=== PATIENT | male | born 1945 | race Caucasian/White ===

== ENCOUNTER 2017-09-30 05:47 | Inpatient (IN) | payer MEDICARE ==
[2017-09-30] VITALS (8 sets, daily range): BP systolic 110–138; BP diastolic 56–79; PULSE 73–95; RESP 14–18; TEMP 98.1–99.1; O2SAT 95–97
[~2017-09-30] VITALS: Ht 172.7 cm; Wt 108.0 kg
[~2017-09-30 05:47] MED LIST: ATOR10 PO; PRED10PA PO; PREG75 PO; RANI150C PO; TAB-TAB PO
[2017-09-30] MEDS ORDERED: TRAM50TA PO (06:11)
[2017-09-30] MEDS ORDERED: ATOR20TA15 PO (06:11)
--- NOTE | 2017-09-30 06:17 | PD ---
HPI Chief Complaint: Fall Time Seen by Provider: 05:54 Travel History International Travel<30 days: Yes Contact w/Intl Traveler<30days: Yes Name of Country Traveled to: [facility] Traveled to known affect area: No History of Present Illness HPI This 72-year-old man who presents to the emergency department complaining of worsening lower extremity weakness. He is a history of neurofibroma that was removed from the L4-5 level in 2007, as well as transverse myelitis in 2013. He is well for bilateral lower extremity weakness, left greater than right. He typically walks with a walker, needs help getting into his bathtub, cannot not stand for extended periods. He states over the past 2-3 weeks this has gotten significantly worse. He fell while he was in [place], and then tonight he was trying to get out of bed and he states his legs will not hold him and he slid down to the ground. He was unable to get up on his own. He has had some URI symptoms recently with cough and congestion. Denies any fevers or chills. No urinary symptoms. No other complaints. He struggles with lower extremity edema, which is been significant recently, but consistent with the previous problems he has had. History Past Medical History Narrative Medical History of neurofibroma at the L4-L5 level, status post resection in 2007 History of transverse myelitis in 2012 with resultant lower extremity weakness, left greater than right Arthritis Hyperlipidemia Tetanus Vaccination: Unknown Influenza Vaccination: No Social History Alcohol Use: No Tobacco Use: No Allergies-Medications (Allergen,Severity, Reaction): Coded Allergies: No Known Allergies (Verified Adverse Reaction, Unknown, 09/30/17) Reported Meds & Prescriptions Reported Meds & Active Scripts Active Reported Zantac (Ranitidine HCl) 150 Mg Cap 150 Mg PO BID while taking prednisone Prednisone 10 Mg Miki 10 Mg PO DIRECTED 6 tabs every am x 2days then 5 tabs po daily then 4 tabs daily x 2 days then 3 tabs daily times 2 days then 2 tabs daily times 2 days then 1 tab daily times 2 days Lyrica (Pregabalin) 75 Mg Cap 75 Mg PO BID Multivitamin (Multivitamins) 1 Tab Tab 1 Tab PO DAILY Lipitor (Atorvastatin Calcium) 10 Mg Tab 20 Mg PO DAILY Review of Systems Except as stated in HPI: all other systems reviewed are Neg Physical Exam Narrative GENERAL: Well-appearing 72-year-old man, no acute distress. SKIN: Focused skin assessment warm/dry. HEAD: Atraumatic. Normocephalic. EYES: Pupils equal and round. No scleral icterus. No injection or drainage. ENT: No nasal bleeding or discharge. Mucous membranes pink and moist. NECK: Trachea midline. No JVD. CARDIOVASCULAR: Regular rate and rhythm. No murmur appreciated. RESPIRATORY: No accessory muscle use. Clear to auscultation. Breath sounds equal bilaterally. GASTROINTESTINAL: Abdomen soft, non-tender, nondistended. Hepatic and splenic margins not palpable. MUSCULOSKELETAL: No obvious deformities. Significant lower extremity edema, equal bilaterally. NEUROLOGICAL: Awake and alert. No obvious cranial nerve deficits. Strength is weak in the lower extremities. Upper extremity strength is grossly unremarkable. In the lower extremities he is weak in right lower extremity flexion at the hips, barely able to lift legs up off the bed. Strength and the knees is a little bit stronger in extension as well as strong and plantar flexion and dorsiflexion of the foot and toes. On the left he is unable to lift the leg up against gravity, 2+ in the knees for extension and flexion, nearly absent and great toe plantarflexion and foot plantarflexion, and completely absent in foot and great toe dorsiflexion on the left. Sensation appears grossly intact throughout to light touch. Reflexes are absent in the lower extremities. PSYCHIATRIC: Appropriate mood and affect; insight and judgment normal. Data Data Last Documented VS Vital Signs Date Time Temp Pulse Resp B/P (MAP) Pulse Ox O2 Delivery O2 Flow Rate FiO2 09/30/17 05:57 89 17 98 Room Air 09/30/17 05:53 98.1 122/64 (83) Orders Orders Complete Blood Count With Diff (09/30/17 06:08) Comprehensive Metabolic Panel (09/30/17 06:08) Iv Access Insert/Monitor (09/30/17 06:08) Urinalysis - C+S If Indicated (09/30/17 06:08) MDM Medical Decision Making Medical Screen Exam Complete: Yes Emergency Medical Condition: Yes Differential Diagnosis Weakness, lower extremity edema, worsening transverse myelitis, infection, electrolyte abnormality, other Narrative Course Medical decision making INITIAL: 72-year-old male presents to the emergency department complaining of weakness and fall. No evidence of trauma. Marked weakness in the lower extremities, especially in the left. Some of this is baseline but appears acutely worsened. Could represent exacerbation of previous symptoms from infection, electrolyte abnormality, worsening debility, or less likely recurrence of new neurologic disease. Will check labs, urine, gait tests, likely need admission for physical therapy evaluation and possibly further workup. Chandrakant Ledbetter MD Sep 30, 2017 06:17
[2017-09-30 06:26] LABS: AUTOMATED NEUTROPHIL # 17.3 TH/MM3 (1.8-7.7); BASOPHIL # 0.1 TH/MM3 (0-0.2); BASOPHIL % 0.4 % (0.0-2.0); EOSINOPHIL % 0.2 % (0.0-4.0); HEMATOCRIT 37.7 % (39.0-51.0); HEMOGLOBIN 13.3 GM/DL (13.0-17.0); LYMPH % 4.6 % (9.0-44.0); LYMPHOCYTE # 0.9 TH/MM3 (1.0-4.8); MEAN CELL VOLUME 83.7 FL (80.0-100.0); MEAN CORPUSCULAR HEMOGLOBIN 29.6 PG (27.0-34.0); MEAN CORPUSCULAR HGB CONC 35.3 % (32.0-36.0); MEAN PLATELET VOLUME 7.8 FL (7.0-11.0); MONO % 7.1 % (0.0-8.0); MONOCYTE # 1.4 TH/MM3 (0-0.9); NEUT % 87.7 % (16.0-70.0); PLATELET COUNT 204 TH/MM3 (150-450); RED BLOOD COUNT 4.51 MIL/MM3 (4.50-5.90); RED CELL DISTRIBUTION WIDTH 14.8 % (11.6-17.2); WHITE BLOOD COUNT 19.8 TH/MM3 (4.0-11.0)
[2017-09-30 06:48] LABS: ALT (GPT) 32 U/L (12-78); AST (GOT) 18 U/L (15-37); BICARBONATE 27.8 MEQ/L (21.0-32.0); BLOOD UREA NITROGEN 17 MG/DL (7-18); CALCIUM 8.3 MG/DL (8.5-10.1); CHLORIDE 104 MEQ/L (98-107); CREATININE 0.89 MG/DL (0.60-1.30); GLOMERULAR FILTRATION RATE 85 ML/MIN (>89); GLUCOSE,RANDOM 97 MG/DL (74-106); SODIUM (NA) 137 MEQ/L (136-145)
[2017-09-30 06:51] LABS: ALKALINE PHOSPHATASE 98 U/L (45-117); TOTAL BILIRUBIN ADULT 1.8 MG/DL (0.2-1.0); TOTAL PROTEIN 6.4 GM/DL (6.4-8.2)
--- NOTE | 2017-09-30 07:35 | RADRPT ---
EXAM DATE/TIME: 09/30/2017 07:05 [place] COMPARISON: No previous studies available for comparison. INDICATIONS : Short of breath MEDICAL HISTORY : None. SURGICAL HISTORY : None. ENCOUNTER: Initial ACUITY: 1 day PAIN SCORE: 0/10 LOCATION: Bilateral chest FINDINGS: Left basilar patchiness is noted consistent with probable pneumonia. Clinical correlation is recommen ded. The heart is enlarged. Right lung is clear. CONCLUSION: 1. Left basilar patchiness consistent with probable pneumonia. Clinical correlation is recommended. 2. Cardiomegaly. Gatito Quiñonez MD on September 30, 2017 at 7:33 Board Certified Radiologist. This report was verified electronically.
[2017-09-30 07:36] LABS: BACTERIA, URINE MOD /hpf; BILIRUBIN, URINE NEG (NEG); BLOOD, URINE MOD (NEG); GLUCOSE,URINE NEG (NEG); KETONE, URINE NEG (NEG); MUCUS URINE MOD /lpf (OCC); NITRITE,URINE NEG (NEG); PH, URINE 7.5 (5.0-8.5); SQUAMOUS EPITHELIAL CELL URINE <1 /hpf (0-5); URINE COLOR YELLOW (YELLW/STRAW); URINE LEUKOCYTE ESTERASE LARGE (NEG)
[2017-09-30] MEDS ORDERED: AZITHROMYCIN INJ 500 MG in SODIUM CHLOR 0.9% 250 ML INJ 250 ML IV ONE (07:45)
[2017-09-30] MEDS ORDERED: cefTRIAXone INJ 1,000 MG in SODIUM CHLORIDE 0.9% INJ 100 ML IV ONE (07:45)
--- NOTE | 2017-09-30 07:49 | PD ---
Physical Exam Date Seen by Provider: Sep 30, 2017 Time Seen by Provider: 07:00 Narrative The patient was signed out to me by Dr. Ledbetter at change of shift. We were awaiting chest x-ray and urine results. Patient presents with complaints of worsening weakness over the last several days. There is no reported fever. The patient has had a dry cough. Please see Dr. Ledbetter's H&P for further details. Data Data Last Documented VS Vital Signs Date Time Temp Pulse Resp B/P (MAP) Pulse Ox O2 Delivery O2 Flow Rate FiO2 09/30/17 07:09 86 14 119/56 (77) 97 Room Air 09/30/17 05:53 98.1 Orders Orders Complete Blood Count With Diff (09/30/17 06:08) Comprehensive Metabolic Panel (09/30/17 06:08) Iv Access Insert/Monitor (09/30/17 06:08) Urinalysis - C+S If Indicated (09/30/17 06:08) Chest, Single Ap (09/30/17 ) Urine Culture (09/30/17 07:10) Ceftriaxone Inj (Rocephin Inj) (09/30/17 07:45) Azithromycin Inj (Zithromax Inj) (09/30/17 07:45) Atorvastatin (Lipitor) (09/30/17 21:00) Tramadol (Ultram) (09/30/17 08:30) Admit Order (Ed Use Only) (09/30/17 08:23) Labs Laboratory Tests Test 09/30/17 06:15 09/30/17 07:10 White Blood Count 19.8 TH/MM3 Red Blood Count 4.51 MIL/MM3 Hemoglobin 13.3 GM/DL Hematocrit 37.7 % Mean Corpuscular Volume 83.7 FL Mean Corpuscular Hemoglobin 29.6 PG Mean Corpuscular Hemoglobin Concent 35.3 % Red Cell Distribution Width 14.8 % Platelet Count 204 TH/MM3 Mean Platelet Volume 7.8 FL Neutrophils (%) (Auto) 87.7 % Lymphocytes (%) (Auto) 4.6 % Monocytes (%) (Auto) 7.1 % Eosinophils (%) (Auto) 0.2 % Basophils (%) (Auto) 0.4 % Neutrophils # (Auto) 17.3 TH/MM3 Lymphocytes # (Auto) 0.9 TH/MM3 Monocytes # (Auto) 1.4 TH/MM3 Eosinophils # (Auto) 0.0 TH/MM3 Basophils # (Auto) 0.1 TH/MM3 CBC Comment DIFF FINAL Differential Comment Blood Urea Nitrogen 17 MG/DL Creatinine 0.89 MG/DL Random Glucose 97 MG/DL Total Protein 6.4 GM/DL Albumin 3.0 GM/DL Calcium Level 8.3 MG/DL Alkaline Phosphatase 98 U/L Aspartate Amino Transf (AST/SGOT) 18 U/L Alanine Aminotransferase (ALT/SGPT) 32 U/L Total Bilirubin 1.8 MG/DL Sodium Level 137 MEQ/L Potassium Level 3.7 MEQ/L Chloride Level 104 MEQ/L Carbon Dioxide Level 27.8 MEQ/L Anion Gap 5 MEQ/L Estimat Glomerular Filtration Rate 85 ML/MIN Urine Color YELLOW Urine Turbidity HAZY Urine pH 7.5 Urine Specific [place] 1.019 Urine Protein 30 mg/dL Urine Glucose (UA) NEG mg/dL Urine Ketones NEG mg/dL Urine Occult Blood MOD Urine Nitrite NEG Urine Bilirubin NEG Urine Urobilinogen 2.0 MG/DL Urine Leukocyte Esterase LARGE Urine RBC 62 /hpf Urine WBC /hpf Urine Squamous Epithelial Cells <1 /hpf Urine Bacteria MOD /hpf Urine Mucus MOD /lpf Microscopic Urinalysis Comment CULTURE INDICATED MDM Medical Record Reviewed: Yes Supervised Visit with CT: No Differential Diagnosis UTI versus pneumonia versus metabolic derangement versus worsening lower extremity edema. Narrative Course 72-year-old male history of transverse myelitis, presents with progressive weakness of his extremities over the last several days. Patient is noted to have a left lower lobe pneumonia. Patient also has a UTI. White count was 19, 000. He has been started on Rocephin, Zithromax. He will be admitted to the hospital. There is a call out to the admitting team. Sepsis Criteria SIRS Criteria (2 or more): Heart rate over 90, WBC > 02729, < 4000 or > 10% bands Sepsis Criteria (SIRS+source): Infect source susp/known Diagnosis Primary Impression: Sepsis Additional Impressions: Left lower lobe pneumonia Cystitis Leukocytosis History of transverse myelitis Worsening weakness Admitting Information Admitting Physician Requests: Admit Angus Escobar MD Sep 30, 2017 07:49
[2017-09-30] MEDS ORDERED: LACTULOSE SYRUP 20 GM/30 ML CUP PO PRN (08:30)
[2017-09-30] MEDS ORDERED: NALOXONE HCL 0.4 MG/ML AMP IV PUSH PRN (08:30)
[2017-09-30] MEDS ORDERED: BISACODYL 10 MG SUPP RECTAL PRN (08:30)
[2017-09-30] MEDS ORDERED: SENNOSIDES 8.6 MG TAB PO PRN (08:30)
[2017-09-30] MEDS ORDERED: SODIUM CHLORIDE 0.9% FLUSH 10 ML FLUSH IV FLUSH PRN (08:30)
[2017-09-30] MEDS ORDERED: ONDANSETRON HCL 4 MG/2 ML VIAL IVP PRN (08:30)
[2017-09-30] MEDS ORDERED: ACETAMINOPHEN 325 MG TAB PO PRN (08:30)
[2017-09-30] MEDS: traMADol HCL 50 MG TAB PO PRN ×2 (08:49→21:37)
--- NOTE | 2017-09-30 08:52 | PD.PN.STU ---
Subjective Remarks H&P: HPI: The patient is a 72 year old man with a history of transverse myelitis who presented to the ER on 09/30/17 due to worsening LE weakness. He has bilateral lower extremity weakness at baseline, left greater than right. He uses a walker at home usually. Over the last 2-3 days, he has had an increase of weakness in his lower extremities, which culminated into a fall in which the patient could not get himself up. He admits to having some subjective fevers, chills and non-productive cough, but denies nausea, vomiting and diarrhea. He denies changes in urinary frequency and dysuria. 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 SOCIAL HX: Cigar smoking, quit 25 years ago Rare alcohol FAMILY HX Father of COPD, HTN, [place] Mother of ovarian cancer, had history of valvular disease, had valve replacement surgery Two sisters with breast cancer Brother with thyroidectomy for Graves Objective Vitals Vital Signs Date Time Temp Pulse Resp B/P (MAP) Pulse Ox O2 Delivery O2 Flow Rate FiO2 09/30/17 07:09 86 14 119/56 (77) 97 Room Air 09/30/17 05:57 89 17 98 Room Air 09/30/17 05:53 98.1 95 17 122/64 (83) 97 I/O 09/29/17 09/29/17 09/29/17 09/30/17 09/30/17 09/30/17 07:00 15:00 23:00 07:00 15:00 23:00 Intake Total 100 ml Balance 100 ml Intake IV Total 100 ml Result Diagram: 09/30/17 0615 09/30/17 0615 Imaging Last Impressions Chest X-Ray 09/30/17 0000 Signed Impressions: Service Date/Time: Saturday, September 30, 2017 07:05 - CONCLUSION: 1. Left basilar patchiness consistent with probable pneumonia. Clinical correlation is recommended. 2. Cardiomegaly. Gatito Quiñonez MD Objective Remarks GENERAL: Alert, oriented x 3, NAD. Appears his stated age. SKIN: Warm and dry. HEAD: Atraumatic. Normocephalic. EYES: Lid lag and slight exophthalmos. Pupils equal and round. No scleral icterus. No injection or drainage. ENT: No nasal bleeding or discharge. Mucous membranes pink and moist. NECK: Trachea midline. No JVD. CARDIOVASCULAR: Regular rate and rhythm. RESPIRATORY: No accessory muscle use. Clear to auscultation. Breath sounds equal bilaterally. GASTROINTESTINAL: Abdomen soft, non-tender, nondistended. Hepatic and splenic margins not palpable. MUSCULOSKELETAL: Extremities without clubbing, cyanosis. Edema in bilateral lower extremities. NEUROLOGICAL: Awake and alert. No obvious cranial nerve deficits. Motor grossly within normal limits. Five out of 5 muscle strength in the arms. 4/5 muscle strength in the RLE. 3/5 muscle strength in the distal LLE. 2/5 muscle strength in the proximal LLE. DTR's 2+. Normal speech. A/P Assessment and Plan The patient is a pleasant 72 year old male with a history of tranverse myeltiis who presents to the ED for worsening lower extremity weakness over the last few days. He admitted to having subjective fevers and cough in the last few days, and initial workup revealed elevated WBC at 19.8, left basilar patchiness suspicious for pneumonia on CXR, and a positive UA. Patient meets sepsis criteria due to tachycardia, WBC >12,000 and suspected infection. He was given ceftriaxone 1000mg once and azithromycin 500 mg once in the ER. Sepsis (leucocytosis, tachycardia source of ifx PNA and UTI) Pneumonia UTI Continue IV fluids Continue ceftriaxone 1000mg q24hr Continue azithromycin 500 mg q24hr Awaiting sputum sample gram stain and culture if possible Urine culture pending Transverse myelitis Suspect worsening of lower extremity weakness is due to underlying infection , will consider other possibilities if patient fails to improve. Consult Dr. Velasquez/Neuro Hypertension Normotensive today, will monitor Hyperlipidemia Continue home med, Lipitor 20mg PO daily DVT prophylaxis: Lovenox. Seen and examined, case discussed at length with Benja Cazares MS III. Note reviewed and agree with above. Benja Cazares M3 Sep 30, 2017 08:52 Kori Patel MD Sep 30, 2017 11:49
[2017-09-30] MEDS: ENOXAPARIN SODIUM 40 MG/0.4 ML SYRINGE SQ SCH (09:03)
[2017-09-30] MEDS: SODIUM CHLORIDE 0.9% FLUSH 10 ML FLUSH IV FLUSH SCH ×2 (09:03→21:00)
[2017-09-30] MEDS: DOCUSATE SODIUM 50 MG/SENNA 8.6 MG TAB PO SCH ×2 (09:03→21:38)
[2017-09-30] MEDS: SODIUM CHLOR 0.9% 1000 ML INJ 1,000 ML IV SCH ×2 (09:03→19:00)
--- NOTE | 2017-09-30 11:07 | HHI.HP ---
HPI Service [facility] Primary Care Physician Emma Wasserman MD Admission Diagnosis Sepsis, pneumonia, cystitis, leukocytosis, hx of Tranverse myelitis Diagnoses: Chief Complaint: weakness Travel History International Travel<30 Days: Yes Contact w/Intl Traveler <30 Da: Yes Name of Country Traveled to: [facility] Traveled to Known Affected Are: No History of Present Illness The patient is a pleasant 72 year old man with a history of transverse myelitis who presented to the ER on 09/30/17 due to worsening LE weakness. He has bilateral lower extremity weakness at baseline, left greater than right. He uses a walker at home usually. Over the last 2-3 days, he has had an increase of weakness in his lower extremities, which culminated into a fall in which the patient could not get himself up. He admits to having some subjective fevers, chills and non-productive cough, but denies nausea, vomiting and diarrhea. He denies changes in urinary frequency and dysuria. 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 Reported Medications Last Impressions Chest X-Ray 09/30/17 0000 Signed Impressions: Service Date/Time: Saturday, September 30, 2017 07:05 - CONCLUSION: 1. Left basilar patchiness consistent with probable pneumonia. Clinical correlation is recommended. 2. Cardiomegaly. Gatito Quiñonez MD Allergies: Coded Allergies: No Known Allergies (Verified Allergy, Unknown, 09/30/17) Family History Father of COPD, HTN, [place] Mother of ovarian cancer, had history of valvular disease, had valve replacement surgery Two sisters with breast cancer Brother with thyroidectomy for Graves Social History Cigar smoking, quit 25 years ago Rare alcohol Physical Exam Vital Signs Vital Signs Date Time Temp Pulse Resp B/P (MAP) Pulse Ox O2 Delivery O2 Flow Rate FiO2 09/30/17 07:09 86 14 119/56 (77) 97 Room Air 09/30/17 05:57 89 17 98 Room Air 09/30/17 05:53 98.1 95 17 122/64 (83) 97 Physical Exam GENERAL: This is a well-nourished, well-developed patient, in no apparent distress. SKIN: No rashes, ecchymoses or lesions. Cool and dry. HEAD: Atraumatic. Normocephalic. No temporal or scalp tenderness. EYES: Pupils equal round and reactive. Extraocular motions intact. No scleral icterus. No injection or drainage. ENT: Nose without bleeding, purulent drainage or septal hematoma. Throat without erythema, tonsillar hypertrophy or exudate. Uvula midline. Airway patent. NECK: Trachea midline. No JVD or lymphadenopathy. Supple, nontender, no meningeal signs. CARDIOVASCULAR: Regular rate and rhythm without murmurs, gallops, or rubs. RESPIRATORY: Clear to auscultation. Breath sounds equal bilaterally. No wheezes , rales, or rhonchi. GASTROINTESTINAL: Abdomen soft, non-tender, nondistended. No hepato-splenomegaly , or palpable masses. No guarding. MUSCULOSKELETAL: Extremities without clubbing, cyanosis, or edema. No joint tenderness, effusion, or edema noted. No calf tenderness. Negative Homans sign bilaterally. NEUROLOGICAL: Awake and alert. Normal speech. Five out of 5 muscle strength in arms. 4/5 muscle strength in the RLE. 3/5 muscle strength in the distal LLE. 2 /5 muscle strength in the proximal LLE. Laboratory Laboratory Tests Test 09/30/17 06:15 09/30/17 07:10 White Blood Count 19.8 Red Blood Count 4.51 Hemoglobin 13.3 Hematocrit 37.7 Mean Corpuscular Volume 83.7 Mean Corpuscular Hemoglobin 29.6 Mean Corpuscular Hemoglobin Concent 35.3 Red Cell Distribution Width 14.8 Platelet Count 204 Mean Platelet Volume 7.8 Neutrophils (%) (Auto) 87.7 Lymphocytes (%) (Auto) 4.6 Monocytes (%) (Auto) 7.1 Eosinophils (%) (Auto) 0.2 Basophils (%) (Auto) 0.4 Neutrophils # (Auto) 17.3 Lymphocytes # (Auto) 0.9 Monocytes # (Auto) 1.4 Eosinophils # (Auto) 0.0 Basophils # (Auto) 0.1 CBC Comment DIFF FINAL Differential Comment Blood Urea Nitrogen 17 Creatinine 0.89 Random Glucose 97 Total Protein 6.4 Albumin 3.0 Calcium Level 8.3 Alkaline Phosphatase 98 Aspartate Amino Transf (AST/SGOT) 18 Alanine Aminotransferase (ALT/SGPT) 32 Total Bilirubin 1.8 Sodium Level 137 Potassium Level 3.7 Chloride Level 104 Carbon Dioxide Level 27.8 Anion Gap 5 Estimat Glomerular Filtration Rate 85 Urine Color YELLOW Urine Turbidity HAZY Urine pH 7.5 Urine Specific [place] 1.019 Urine Protein 30 Urine Glucose (UA) NEG Urine Ketones NEG Urine Occult Blood MOD Urine Nitrite NEG Urine Bilirubin NEG Urine Urobilinogen 2.0 Urine Leukocyte Esterase LARGE Urine RBC 62 Urine WBC Urine Squamous Epithelial Cells <1 Urine Bacteria MOD Urine Mucus MOD Microscopic Urinalysis Comment CULTURE INDICATED Date/Time Source Procedure Growth Status 09/30/17 07:10 Urine Clean Catch Urine Culture Pending Received Result Diagram: 09/30/17 0615 09/30/17 0615 Imaging Last Impressions Chest X-Ray 09/30/17 0000 Signed Impressions: Service Date/Time: Saturday, September 30, 2017 07:05 - CONCLUSION: 1. Left basilar patchiness consistent with probable pneumonia. Clinical correlation is recommended. 2. Cardiomegaly. Gatito Quiñonez MD Caprini VTE Risk Assessment Caprini VTE Risk Assessment: Mod/High Risk (score >= 2) Caprini Risk Assessment Model Point Value = 1 Point Value = 2 Point Value = 3 Point Value = 5 Age 41-60 Minor surgery BMI > 25 kg/m2 Swollen legs Varicose veins or History of unexplained or recurrent spontaneous Oral contraceptives or hormone replacement Sepsis (< 1 month) Serious lung disease, including pneumonia (< 1 month) Abnormal pulmonary function Acute myocardial infarction Congestive heart failure (< 1 month) History of inflammatory bowel disease Medical patient at bed rest Age 61-74 Arthroscopic surgery Major open surgery (> 45 min) Laparoscopic surgery (> 45 min) Malignancy Confined to bed (> 72 hours) Immobilizing plaster cast Central venous access Age >= 75 History of VTE Family history of VTE Factor V Leiden Prothrombin [id number] Lupus anticoagulant Anticardiolipin antibodies Elevated serum homocysteine Heparin-induced thrombocytopenia Other congenital or acquired thrombophilia Stroke (< 1 month) Elective arthroplasty Hip, pelvis, or leg fracture Acute spinal cord injury (< 1 month) Prophylaxis Regimen Total Risk Factor Score Risk Level Prophylaxis Regimen 0-1 Low Early ambulation 2 Moderate Order ONE of the following: *Sequential Compression Device (SCD) *Heparin 5000 units SQ BID 3-4 Higher Order ONE of the following medications: *Heparin 5000 units SQ TID *Enoxaparin/Lovenox 40 mg SQ daily (WT < 150 kg, CrCl > 30 mL/min) *Enoxaparin/Lovenox 30 mg SQ daily (WT < 150 kg, CrCl > 10-29 mL/min) *Enoxaparin/Lovenox 30 mg SQ BID (WT < 150 kg, CrCl > 30 mL/min) AND/OR *Sequential Compression Device (SCD) 5 or more Highest Order ONE of the following medications: *Heparin 5000 units SQ TID (Preferred with Epidurals) *Enoxaparin/Lovenox 40 mg SQ daily (WT < 150 kg, CrCl > 30 mL/min) *Enoxaparin/Lovenox 30 mg SQ daily (WT < 150 kg, CrCl > 10-29 mL/min) *Enoxaparin/Lovenox 30 mg SQ BID (WT < 150 kg, CrCl > 30 mL/min) AND *Sequential Compression Device (SCD) Assessment and Plan Assessment and Plan The patient is a pleasant 72 year old male with a history of tranverse myeltiis who presents to the ED for worsening lower extremity weakness over the last few days. He admitted to having subjective fevers and cough in the last few days, and initial workup revealed elevated WBC at 19.8, left basilar patchiness suspicious for pneumonia on CXR, and a positive UA. Patient meets sepsis criteria due to tachycardia, WBC >12,000 and suspected infection. He was given ceftriaxone 1000mg once and azithromycin 500 mg once in the ER. Sepsis (leucocytosis, tachycardia source of ifx PNA and UTI) on admission Pneumonia UTI Continue IV fluids Continue ceftriaxone 1000mg q24hr Continue azithromycin 500 mg q24hr Awaiting sputum sample gram stain and culture if possible Urine culture pending Transverse myelitis Suspect worsening of lower extremity weakness is due to underlying infection, will consider other possibilities if patient fails to improve. Consult Dr. Velasquez/Neuro Hypertension Normotensive today, will monitor Hyperlipidemia Continue home med, Lipitor 20mg PO daily DVT prophylaxis: SCD/TEDs/Lovenox. Discussed Condition With pt, nurse, ED physician Dr Escobar Physician Certification 2 Midnight Certification Type: Admission for Inpatient Services Order for Inpatient Services The services are ordered in accordance with Medicare regulations or non- Medicare payer requirements, as applicable. In the case of services not specified as inpatient-only, they are appropriately provided as inpatient services in accordance with the 2-midnight benchmark. Estimated LOS (days): 3 days is the estimated time the patient will need to remain in the hospital, assuming treatment plan goals are met and no additional complications. Post-Hospital Plan: Not yet determined Kori Patel MD Sep 30, 2017 11:07
--- NOTE | 2017-09-30 20:11 | MB ---
cc: Robert Velasquez MD, PhD DATE: 09/30/2017 REASON FOR CONSULTATION: Transverse myelitis. HISTORY OF PRESENT ILLNESS: Mr. Pritchett is a 72-year-old man well known to me who has a documented history of transverse myelitis, which has been stable. He has had residual weakness in his legs, but he reports increasing weakness. He has been diagnosed also as having pneumonia with possible sepsis. CURRENT MEDICATIONS: Ceftriaxone, azithromycin, Lipitor, Lovenox 40 mg subQ daily, Ultram, Tylenol, Narcan, Zofran. NEUROLOGIC EXAMINATION: His blood pressure is 138/79, pulse is 74, respirations 18, temperature 98 degrees. Higher cortical functions are normal. Cranial nerves 2-12 are normal. Motor exam: 5/5 strength of all groups in both upper extremities. Lower extremity strength is weak in both lower extremities. He is approximately 3/5 in the right leg, 4-/5 left leg proximally and distally. Reflexes 2+, symmetric. LABORATORY DATA: The white count is 19,800, hemoglobin 13.3, hematocrit 37%, platelets 204,000. Sodium is 137, potassium 3.7, chloride 104, CO2 of 27.8, BUN is 17, creatinine 0.89. IMPRESSION: Transverse myelitis, now with increasing symptoms, possibly related to the pneumonia and sepsis. RECOMMENDATION: I would like to proceed with an MRI of the cervical and thoracic spine for further evaluation. Robert Velasquez MD, PhD QUINN/YESY , 07:51 PM , 08:10 PM
[2017-09-30] MEDS: ATORVASTATIN 20 MG TAB PO SCH (21:38)
[2017-10-01] VITALS (7 sets, daily range): BP systolic 112–143; BP diastolic 56–83; PULSE 59–79; RESP 18–20; TEMP 97.5–99.2; O2SAT 95–97
[2017-10-01] MEDS: SODIUM CHLOR 0.9% 1000 ML INJ 1,000 ML IV SCH ×3 (05:19→23:54)
[2017-10-01 06:37] LABS: AUTOMATED NEUTROPHIL # 10.3 TH/MM3 (1.8-7.7); BASOPHIL % 0.1 % (0.0-2.0); EOSINOPHIL # 0.1 TH/MM3 (0-0.4); EOSINOPHIL % 0.5 % (0.0-4.0); HEMATOCRIT 35.3 % (39.0-51.0); HEMOGLOBIN 12.1 GM/DL (13.0-17.0); LYMPH % 8.7 % (9.0-44.0); LYMPHOCYTE # 1.1 TH/MM3 (1.0-4.8); MEAN CELL VOLUME 84.4 FL (80.0-100.0); MEAN CORPUSCULAR HEMOGLOBIN 28.9 PG (27.0-34.0); MEAN CORPUSCULAR HGB CONC 34.2 % (32.0-36.0); MONO % 9.3 % (0.0-8.0); MONOCYTE # 1.2 TH/MM3 (0-0.9); NEUT % 81.4 % (16.0-70.0); PLATELET COUNT 195 TH/MM3 (150-450); RED BLOOD COUNT 4.18 MIL/MM3 (4.50-5.90); WHITE BLOOD COUNT 12.6 TH/MM3 (4.0-11.0)
[2017-10-01 07:31] LABS: BICARBONATE 23.7 MEQ/L (21.0-32.0); CALCIUM 7.7 MG/DL (8.5-10.1); CREATININE 0.7 MG/DL (0.60-1.30)
[2017-10-01] MEDS ORDERED: GADODIAMIDE PF 287 MG/ML 20 ML VIAL (for RAD MRI) IVCONTRAST ONE (08:12)
[2017-10-01] MEDS: SODIUM CHLORIDE 0.9% FLUSH 10 ML FLUSH IV FLUSH SCH ×2 (09:00→21:00)
[2017-10-01] MEDS ORDERED: POTASSIUM CHLORIDE 10 MEQ CAP PO ONE (09:30)
[2017-10-01] MEDS: ENOXAPARIN SODIUM 40 MG/0.4 ML SYRINGE SQ SCH (09:30)
[2017-10-01] MEDS: cefTRIAXone INJ 1,000 MG in SODIUM CHLORIDE 0.9% INJ 100 ML IV SCH (09:31)
[2017-10-01] MEDS: DOCUSATE SODIUM 50 MG/SENNA 8.6 MG TAB PO SCH ×2 (09:31→21:37)
[2017-10-01] MEDS: AZITHROMYCIN INJ 500 MG in SODIUM CHLOR 0.9% 250 ML INJ 250 ML IV SCH (09:32)
--- NOTE | 2017-10-01 11:15 | RADRPT ---
EXAM DATE/TIME: 10/01/2017 07:37 [facility] COMPARISON: MRI THORACIC SPINE W & W/O CONTRAST, July 24, 2012, 9:08. INDICATIONS : Transverse myelitis. History of abnormal thoracic MRI with cord atrophy and abnormal signal at the T5 -6 level. CONTRAST: 20 cc Omniscan (gadodiamide) IV MEDICAL HISTORY : Hypercholesterolemia. Hypertension. Neuropathy. SURGICAL HISTORY : Tonsillectomy. Fusion, lumbar. Inguinal hernia repair. ENCOUNTER: Initial ACUITY: 2 day PAIN SCORE: 2/10 LOCATION: [facility] TECHNIQUE: Multiplanar multisequence MRI of the thoracic spine was performed. FINDINGS: VERTEBRA: Normal vertebral body height. Homogeneous marrow signal. ALIGNMENT: Normal. CORD: Focal atrophy is again noted at the T5-6 level with increased signal on the T2 weighted sagittal imag es. The remainder the thoracic cord appears unremarkable and unchanged. This demonstrates no abnormal enhancement. The axial images also demonstrate focal atrophic changes in the cord at the T5-6 level with increased signal. There is no abnormal enhancement. The remainder the thoracic cord remains unremarkable. The bony structures are intact with no evidence of a disc protrusion or spinal stenosis. CONCLUSION: Stable appearance of thoracic cord with focal abnormality again noted at the T5-6 lev el with atrophy and increased signal on the T2-weighted sequence. There is no abnormal enhancement. Haider Jorgensen MD on October 01, 2017 at 11:08 Board Certified Radiologist. This report was verified electronically.
--- NOTE | 2017-10-01 11:47 | RADRPT ---
EXAM DATE/TIME: 10/01/2017 07:37 [facility] COMPARISON: MRI CERVICAL SPINE W & W/O CONTRAST, July 24, 2012, 9:08. INDICATIONS : Transverese myelitis. CONTRAST: 20 cc Omniscan (gadodiamide) IV MEDICAL HISTORY : Hypertension. Hypercholesterolemia. Neuropathy. SURGICAL HISTORY : Tonsillectomy. Inguinal hernia repair. Fusion, lumbar. ENCOUNTER: Initial ACUITY: 2 day PAIN SCORE: 2/10 LOCATION: [facility] TECHNIQUE: Multiplanar, multisequence MRI examination of the cervical spine was performed. FINDINGS: VERTEBRAE: Normal vertebral body height. Homogeneous marrow signal. ALIGNMENT: No evidence of subluxation. DISCS: Desiccation and mild degenerative disc changes are again noted. CORD: There is a subtle questionable area of signal abnormality again noted in the cervical cord at the C3 level with small vague area of increased signal noted best seen on the T2 and inversion recovery sequ ences. There is no abnormal enhancement. POST FOSSA: The cerebellar tonsils are normal in position. POST-CONTRAST: No abnormal areas of enhancement are seen. C2-C3: The thecal sac has a normal configuration. There is no evidence of disc herniation or spinal canal stenosis. The neural foramina are patent bilaterally. C3-C4: There is a mild disc osteophyte complex again noted with mass effect on the anterior thecal sac. This comes in close contact with the anterior cord with questionable slight flattening. There is minimal residual CSF surrounding the cord and the residual AP diameter the canal measures approximately 7 mm. No trauma pain. There is no evidence of disc herniation or spinal canal stenosis. The neural forami na are patent bilaterally. C4-C5: There is a mild disc osteophyte complex again noted with mild mass effect on the anterior thecal sac and questionable slight flattening of the cord. There is minimal residual CSF surrounding the cord in the residual AP diameter the canal measures approximately 8 mm. The neural foramina appear patent. C5-C6: There is mild disc osteophyte complex with mild mass effect on the anterior thecal sac. This comes in close contact with the cord which appears slightly flattened with no abnormal signal. There is minim al CSF surrounding the cord and the residual AP diameter the canal measures approximate 7-8 mm. The n eural foramina appear patent. C6-C7: There is a mild annular disc bulge with mild mass effect on the intrathecal sac no mass effect on the cord. The neural foramina are patent. C7-T1: The thecal sac has a normal configuration. There is no evidence of disc herniation or spinal canal s tenosis. The neural foramina are patent bilaterally. CONCLUSION: 1. Subtle focal questionable area of signal abnormality again noted in the cord at the C3-4 level wit hout significant change from the prior study. This may or present mild gliosis. 2. Borderline central canal stenosis at the C3-4, C4-5 and C5-6 levels secondary to disc osteophyte c omplexes with questionable mild flattening of the anterior thecal sac. The residual AP diameter of th e canal measures 7-8 mm in these regions. Haider Jorgensen MD on October 01, 2017 at 11:38 Board Certified Radiologist. This report was verified electronically.
--- NOTE | 2017-10-01 13:32 | HHI.PR ---
Subjective Remarks Follow-up transverse myelitis. Stable weakness. He has improving cough denies shortness of breath. Also reports of no BM denies nausea and abdominal pain. Discussed with RN seen with . Objective Vitals Vital Signs Date Time Temp Pulse Resp B/P (MAP) Pulse Ox O2 Delivery O2 Flow Rate FiO2 10/01/17 12:00 97.8 59 20 119/69 (86) 97 10/01/17 08:00 67 10/01/17 08:00 98.9 75 20 112/67 (82) 95 10/01/17 04:00 99.0 73 18 120/58 (78) 95 10/01/17 03:45 63 10/01/17 00:00 99.2 78 18 115/56 (75) 95 09/30/17 23:43 73 09/30/17 21:48 76 09/30/17 20:00 98.4 79 18 119/62 (81) 95 09/30/17 16:00 98.3 74 18 138/79 (98) 97 09/30/17 14:27 74 18 127/60 (82) 97 I/O 09/30/17 09/30/17 09/30/17 10/01/17 10/01/17 10/01/17 07:00 15:00 23:00 07:00 15:00 23:00 Intake Total 500 ml Output Total 250 ml 300 ml Balance 250 ml -300 ml Intake Oral 150 ml IV Total 350 ml Output Urine Total 250 ml 300 ml # Voids 1 # Bowel Movements 0 Result Diagram: 10/01/17 0525 10/01/17 0525 Imaging Last Impressions Thoracic Spine MRI 10/01/17 0000 Signed Impressions: Service Date/Time: Sunday, October 01, 2017 07:37 - CONCLUSION: Stable appearance of thoracic cord with focal abnormality again noted at the T5-6 level with atrophy and increased signal on the T2-weighted sequence. There is no abnormal enhancement. Haider Jorgensen MD Cervical Spine MRI 10/01/17 0000 Signed Impressions: Service Date/Time: Sunday, October 01, 2017 07:37 - CONCLUSION: 1. Subtle focal questionable area of signal abnormality again noted in the cord at the C3-4 level without significant change from the prior study. This may or present mild gliosis. 2. Borderline central canal stenosis at the C3-4, C4-5 and C5-6 levels secondary to disc osteophyte complexes with questionable mild flattening of the anterior thecal sac. The residual AP diameter of the canal measures 7-8 mm in these regions. Haider Jorgensen MD Chest X-Ray 09/30/17 0000 Signed Impressions: Service Date/Time: Saturday, September 30, 2017 07:05 - CONCLUSION: 1. Left basilar patchiness consistent with probable pneumonia. Clinical correlation is recommended. 2. Cardiomegaly. Gatito Quiñonez MD Objective Remarks GENERAL: This is a well-nourished, well-developed patient, in no apparent distress. SKIN: No rashes, ecchymoses or lesions. Cool and dry. CARDIOVASCULAR: Regular rate and rhythm without murmurs, gallops, or rubs. RESPIRATORY: Clear to auscultation. Breath sounds equal bilaterally. No wheezes , rales, or rhonchi. GASTROINTESTINAL: Abdomen soft, non-tender, nondistended. No guarding. MUSCULOSKELETAL: Extremities without clubbing, cyanosis, or edema. No joint tenderness, effusion, or edema noted. No calf tenderness. Negative Homans sign bilaterally. NEUROLOGICAL: Awake and alert. Normal speech. Five out of 5 muscle strength in arms. 4/5 muscle strength in the RLE. 3/5 muscle strength in the distal LLE. 2 /5 muscle strength in the proximal LLE. Procedures none A/P Problem List: (1) Sepsis ICD Code: A41.9 - Sepsis, unspecified organism Status: Acute Assessment and Plan The patient is a pleasant 72 year old male with a history of tranverse myeltiis who presents to the ED for worsening lower extremity weakness over the last few days. He admitted to having subjective fevers and cough in the last few days, and initial workup revealed elevated WBC at 19.8, left basilar patchiness suspicious for pneumonia on CXR, and a positive UA. Patient meets sepsis criteria due to tachycardia, WBC >12,000 and suspected infection. He was given ceftriaxone 1000mg once and azithromycin 500 mg once in the ER. Sepsis (leucocytosis, tachycardia source of ifx PNA and UTI) on admission Pneumonia UTI Continue IV fluids Continue ceftriaxone 1000mg q24hr Continue azithromycin 500 mg q24hr Awaiting sputum sample gram stain and culture if possible Urine culture growing gram-negative devan Transverse myelitis Suspect worsening of lower extremity weakness is due to underlying infection Neurology has been consulted Hypertension Normotensive today, will monitor Hyperlipidemia Continue home med, Lipitor 20mg PO daily DVT prophylaxis: SCD/TEDs/Lovenox. Discharge Planning Patient needs IV antibiotics secondary to sepsis not ready for discharge Amando Crowell MD Oct 01, 2017 13:32
[2017-10-01] MEDS: MAGNESIUM HYDROXIDE SUSP 30 ML CUP PO PRN (14:00)
[2017-10-01] MEDS: TEMAZEPAM 15 MG CAP PO PRN (21:37)
[2017-10-01] MEDS: ATORVASTATIN 20 MG TAB PO SCH (21:37)
[2017-10-02] VITALS (11 sets, daily range): BP systolic 113–144; BP diastolic 58–79; PULSE 58–110; RESP 16–20; TEMP 97.4–98.4; O2SAT 95–97
[2017-10-02] MEDS: DOCUSATE SODIUM 50 MG/SENNA 8.6 MG TAB PO SCH ×2 (07:34→22:03)
[2017-10-02] MEDS: cefTRIAXone INJ 1,000 MG in SODIUM CHLORIDE 0.9% INJ 100 ML IV SCH (07:34)
[2017-10-02] MEDS: ENOXAPARIN SODIUM 40 MG/0.4 ML SYRINGE SQ SCH (07:35)
[2017-10-02] MEDS: SODIUM CHLORIDE 0.9% FLUSH 10 ML FLUSH IV FLUSH SCH ×2 (07:35→22:04)
[2017-10-02] MEDS: AZITHROMYCIN INJ 500 MG in SODIUM CHLOR 0.9% 250 ML INJ 250 ML IV SCH (09:32)
--- NOTE | 2017-10-02 11:06 | HHI.PR ---
Subjective Remarks Follow-up sepsis. States he feels better. Discussed with nursing, overnight telemetry shows transient A. fib with controlled ventricular response patient denies history of A. fib no chest pain, palpitations, shortness of breath and dizziness. Discussed with Objective Vitals Vital Signs Date Time Temp Pulse Resp B/P (MAP) Pulse Ox O2 Delivery O2 Flow Rate FiO2 10/02/17 08:36 98.4 58 20 121/58 (79) 95 10/02/17 07:00 Room Air 10/02/17 04:13 70 10/02/17 04:00 98.0 71 16 125/71 (89) 95 10/02/17 04:00 Room Air 10/02/17 00:13 105 10/02/17 00:00 Room Air 10/02/17 00:00 98.1 110 17 113/79 (90) 96 10/01/17 20:00 97.5 79 18 143/83 (103) 97 10/01/17 20:00 Room Air 10/01/17 20:00 72 10/01/17 16:00 74 10/01/17 16:00 97.7 71 20 121/62 (81) 96 10/01/17 12:00 97.8 59 20 119/69 (86) 97 I/O 10/01/17 10/01/17 10/01/17 10/02/17 10/02/17 10/02/17 07:00 15:00 23:00 07:00 15:00 23:00 Intake Total 480 ml 1480 ml Output Total 1700 ml 1050 ml Balance 480 ml -1700 ml 430 ml Intake Oral 480 ml 480 ml IV Total 1000 ml Output Urine Total 1700 ml 1050 ml # Voids 4 # Bowel Movements 1 Result Diagram: 10/01/17 0525 10/01/17 0525 Imaging Last Impressions Thoracic Spine MRI 10/01/17 0000 Signed Impressions: Service Date/Time: Sunday, October 01, 2017 07:37 - CONCLUSION: Stable appearance of thoracic cord with focal abnormality again noted at the T5-6 level with atrophy and increased signal on the T2-weighted sequence. There is no abnormal enhancement. Haider Jorgensen MD Cervical Spine MRI 10/01/17 0000 Signed Impressions: Service Date/Time: Sunday, October 01, 2017 07:37 - CONCLUSION: 1. Subtle focal questionable area of signal abnormality again noted in the cord at the C3-4 level without significant change from the prior study. This may or present mild gliosis. 2. Borderline central canal stenosis at the C3-4, C4-5 and C5-6 levels secondary to disc osteophyte complexes with questionable mild flattening of the anterior thecal sac. The residual AP diameter of the canal measures 7-8 mm in these regions. Haider Jorgensen MD Chest X-Ray 09/30/17 0000 Signed Impressions: Service Date/Time: Saturday, September 30, 2017 07:05 - CONCLUSION: 1. Left basilar patchiness consistent with probable pneumonia. Clinical correlation is recommended. 2. Cardiomegaly. Gatito Quiñonez MD Objective Remarks GENERAL: This is a well-nourished, well-developed patient, in no apparent distress. SKIN: No rashes, ecchymoses or lesions. Cool and dry. CARDIOVASCULAR: Regular rate and rhythm without murmurs, gallops, or rubs. RESPIRATORY: Clear to auscultation. Breath sounds equal bilaterally. No wheezes , rales, or rhonchi. GASTROINTESTINAL: Abdomen soft, non-tender, nondistended. No guarding. MUSCULOSKELETAL: Extremities without clubbing, cyanosis, or edema. No joint tenderness, effusion, or edema noted. No calf tenderness. Negative Homans sign bilaterally. NEUROLOGICAL: Awake and alert. Normal speech. Five out of 5 muscle strength in arms. 4/5 muscle strength in the RLE. 3/5 muscle strength in the distal LLE. 2 /5 muscle strength in the proximal LLE. Procedures none A/P Problem List: (1) Sepsis ICD Code: A41.9 - Sepsis, unspecified organism Status: Acute Assessment and Plan The patient is a pleasant 72 year old male with a history of tranverse myeltiis who presents to the ED for worsening lower extremity weakness over the last few days. He admitted to having subjective fevers and cough in the last few days, and initial workup revealed elevated WBC at 19.8, left basilar patchiness suspicious for pneumonia on CXR, and a positive UA. Patient meets sepsis criteria due to tachycardia, WBC >12,000 and suspected infection. He was given ceftriaxone 1000mg once and azithromycin 500 mg once in the ER. Sepsis (leucocytosis, tachycardia source of ifx PNA and UTI) on admission Pneumonia Proteus UTI Clinically improved discontinue IV fluids Continue ceftriaxone 1000mg q24hr Continue azithromycin 500 mg q24hr Awaiting sputum sample gram stain and culture if possible Transverse myelitis Suspect worsening of lower extremity weakness is due to underlying infection Neurology has been consulted Hypertension Normotensive, will monitor Hyperlipidemia Continue home med, Lipitor 20mg PO daily New onset A. fib with CVR. Telemetry shows sinus rhythm. [id number] of 2 for HTN and age refusing anticoagulation secondary to history of severe hemorrhoidal bleeding. Agrees with aspirin. Check TSH, echocardiogram and EKG DVT prophylaxis: SCD/TEDs/Lovenox. Discharge Planning Possible discharge in the morning Amando Crowell MD Oct 02, 2017 11:06
[2017-10-02] MEDS: SODIUM CHLOR 0.9% 1000 ML INJ 1,000 ML IV SCH (14:59)
[2017-10-02] MEDS ORDERED: POTASSIUM CHLORIDE 20 MEQ CONTROLLED RELEASE TAB PO ONE (16:00)
[2017-10-02] MEDS ORDERED: ECASA81 PO (16:04)
[2017-10-02] MEDS ORDERED: CIPR-9 PO (16:04)
[2017-10-02] MEDS ORDERED: TRAM50TA PO (16:04)
--- NOTE | 2017-10-02 16:05 | HHI.DCPOC ---
Discharge Care Plan Diagnosis: (1) Left lower lobe pneumonia (2) Sepsis Your Health Problems Are: Difficulty with ADL Exercise Tolerance Goals to Promote Your Health * To prevent worsening of your condition and complications * To maintain your health at the optimal level Directions to Meet Your Goals Take your medications as prescribed Follow your dietary instruction Follow activity as directed Keep your appointments as scheduled Take your immunizations and boosters as scheduled If your symptoms worsen call your PCP, if no PCP go to Urgent Care Center or Emergency Room Smoking is Dangerous to Your Health. Avoid second hand smoke Call the 24-hour hour crisis hotline for domestic abuse at Amando Crowell MD Oct 02, 2017 16:05
[2017-10-02] MEDS: ASPIRIN EC 81 MG TABEC PO SCH (16:06)
--- NOTE | 2017-10-02 20:10 | HHI.PR ---
Review/Management Diagnosis transverse myelitis Plan rehab consult recommend course of iv solumedrol 125 mg iv Q 8 hrs for 3-5 days if ok with primary service Diagnosis/Plan: Subjective Subjective Comments No acute events reported Weak BLE--he states has been ongoing for about a month Active Medications Current Medications Medications (Trade) Dose Ordered Sig/Eze Route Start Time Stop Time Status Last Admin (Lipitor) 20 mg HS PO 09/30/17 21:00 10/01/17 21:37 (Ultram) 50 mg Q8H PRN PO 09/30/17 08:30 09/30/17 21:37 (NS Flush) 2 ml UNSCH PRN IV FLUSH 09/30/17 08:30 (NS Flush) 2 ml BID IV FLUSH 09/30/17 09:00 10/02/17 07:35 (Tylenol) 650 mg Q4H PRN PO 09/30/17 08:30 (Zofran Inj) 4 mg Q6H PRN IVP 09/30/17 08:30 (Restoril) 15 mg HS PRN PO 09/30/17 08:30 10/01/17 21:37 (Lovenox Inj) 40 mg Q24H SQ 09/30/17 09:00 10/02/17 07:35 (Narcan Inj) 0.4 mg UNSCH PRN IV PUSH 09/30/17 08:30 (Monique-Colace) 1 tab BID PO 09/30/17 09:00 10/02/17 07:34 (Milk Of Magnesia Liq) 30 ml Q12H PRN PO 09/30/17 08:30 10/01/17 14:00 (Senokot) 17.2 mg Q12H PRN PO 09/30/17 08:30 (Dulcolax Supp) 10 mg DAILY PRN RECTAL 09/30/17 08:30 (Lactulose Liq) 30 ml DAILY PRN PO 09/30/17 08:30 Ceftriaxone Sodium 1000 mg/ Sodium Chloride 100 ml @ 200 mls/hr Q24H IV 10/01/17 08:00 10/02/17 07:34 Azithromycin 500 mg/Sodium Chloride 250 ml @ 250 mls/hr Q24H IV 10/01/17 09:00 10/02/17 09:32 (Ecotrin Ec) 81 mg DAILY PO 10/02/17 16:00 4/1/18 16:06 Allergies Allergies Coded Allergies No Known Allergies (Verified Allergy, Unknown, 09/30/17) Exam I&O / VS Vital Signs Date Time Temp Pulse Resp B/P (MAP) Pulse Ox O2 Delivery O2 Flow Rate FiO2 10/02/17 16:10 97.8 69 20 125/70 (88) 96 10/02/17 16:00 59 10/02/17 12:12 97.4 70 20 119/65 (83) 97 10/02/17 08:36 98.4 58 20 121/58 (79) 95 10/02/17 08:00 73 10/02/17 07:00 Room Air 10/02/17 04:13 70 10/02/17 04:00 98.0 71 16 125/71 (89) 95 10/02/17 04:00 Room Air 10/02/17 00:13 105 10/02/17 00:00 Room Air 10/02/17 00:00 98.1 110 17 113/79 (90) 96 Exam Comments alert, speech normal CN intact MOTOR 5/5 BUE. 3/5 BLE Objective Radiology Results MRI cervical spine---cord abnormality , no severe stenosis MRI thoracic spine-----cord atrophy and increased signal T56. No abnormal enhancement of the cord Micro and Labs Laboratory Tests Test 10/02/17 17:17 Thyroid Stimulating Hormone 3rd Gen 1.390 Date/Time Source Procedure Growth Status 09/30/17 07:10 Urine Clean Catch Urine Culture - Final Proteus Mirabilis Complete Robert Velasquez MD PhD Oct 02, 2017 20:10
[2017-10-02] MEDS: ATORVASTATIN 20 MG TAB PO SCH (22:03)
[2017-10-02] MEDS: TEMAZEPAM 15 MG CAP PO PRN (22:03)
[2017-10-03] VITALS (8 sets, daily range): BP systolic 127–154; BP diastolic 61–80; PULSE 65–75; RESP 16–20; TEMP 97.5–98.2; O2SAT 95–96
[2017-10-03] MEDS: SODIUM CHLORIDE 0.9% FLUSH 10 ML FLUSH IV FLUSH SCH ×2 (09:00→20:55)
--- NOTE | 2017-10-03 09:01 | EKG ---
Date Performed: 10/02/2017 Time Performed: 16:27:02 PTAGE: 72 years EKG: Sinus rhythm WITH OCCASIONAL SUPRAVENTRICULAR PREMATURE COMPLEXES LEFT ANTERIOR FASCICULAR BLOCK ABNORMAL ECG PREVIOUS TRACING : 04/16/2008 08.15 Since the previous tracing, no significant change noted DOCTOR: Alexandre Mendenhall Interpretating Date/Time 10/03/2017 09:00:12
[2017-10-03] MEDS: AZITHROMYCIN INJ 500 MG in SODIUM CHLOR 0.9% 250 ML INJ 250 ML IV SCH (09:05)
[2017-10-03] MEDS: cefTRIAXone INJ 1,000 MG in SODIUM CHLORIDE 0.9% INJ 100 ML IV SCH (09:05)
[2017-10-03] MEDS: DOCUSATE SODIUM 50 MG/SENNA 8.6 MG TAB PO SCH ×2 (09:06→20:54)
[2017-10-03] MEDS: ENOXAPARIN SODIUM 40 MG/0.4 ML SYRINGE SQ SCH (09:06)
[2017-10-03] MEDS: ASPIRIN EC 81 MG TABEC PO SCH (09:06)
[2017-10-03] MEDS: methylPREDNISolone SOD SUCC 125 MG/2 ML VIAL IV PUSH SCH ×3 (09:15→20:55)
--- NOTE | 2017-10-03 12:33 | HHI.PR ---
Subjective Remarks Follow-up transverse myelitis, UTI and paroxysmal A. fib. No new complaints still with bilateral lower extremity weakness. No UTI symptoms. Telemetry shows sinus rhythm with NSVT denies any symptoms. Discussed with nursing Objective Vitals Vital Signs Date Time Temp Pulse Resp B/P (MAP) Pulse Ox O2 Delivery O2 Flow Rate FiO2 10/03/17 08:00 98.1 72 20 154/80 (104) 95 10/03/17 07:15 95 Room Air 10/03/17 04:03 75 10/03/17 04:00 97.5 70 16 153/70 (97) 95 10/03/17 04:00 Room Air 10/03/17 00:00 Room Air 10/03/17 00:00 71 10/02/17 23:53 98.3 70 18 137/71 (93) 97 10/02/17 20:00 97.9 70 18 144/67 (92) 97 10/02/17 20:00 71 10/02/17 20:00 Room Air 10/02/17 16:10 97.8 69 20 125/70 (88) 96 10/02/17 16:00 59 I/O 10/02/17 10/02/17 10/02/17 10/03/17 10/03/17 10/03/17 07:00 15:00 23:00 07:00 15:00 23:00 Intake Total 1480 ml 632 ml 480 ml Output Total 1050 ml 1100 ml Balance 430 ml 632 ml -620 ml Intake Oral 480 ml 480 ml IV Total 1000 ml 632 ml Output Urine Total 1050 ml 1100 ml # Bowel Movements 1 0 Result Diagram: 10/01/17 0525 10/01/17 0525 Imaging Last Impressions Thoracic Spine MRI 10/01/17 0000 Signed Impressions: Service Date/Time: Sunday, October 01, 2017 07:37 - CONCLUSION: Stable appearance of thoracic cord with focal abnormality again noted at the T5-6 level with atrophy and increased signal on the T2-weighted sequence. There is no abnormal enhancement. Haider Jorgensen MD Cervical Spine MRI 10/01/17 0000 Signed Impressions: Service Date/Time: Sunday, October 01, 2017 07:37 - CONCLUSION: 1. Subtle focal questionable area of signal abnormality again noted in the cord at the C3-4 level without significant change from the prior study. This may or present mild gliosis. 2. Borderline central canal stenosis at the C3-4, C4-5 and C5-6 levels secondary to disc osteophyte complexes with questionable mild flattening of the anterior thecal sac. The residual AP diameter of the canal measures 7-8 mm in these regions. Haider Jorgensen MD Chest X-Ray 09/30/17 0000 Signed Impressions: Service Date/Time: Saturday, September 30, 2017 07:05 - CONCLUSION: 1. Left basilar patchiness consistent with probable pneumonia. Clinical correlation is recommended. 2. Cardiomegaly. Gatito Quiñonez MD Objective Remarks GENERAL: This is a well-nourished, well-developed patient, in no apparent distress. SKIN: No rashes, ecchymoses or lesions. Cool and dry. CARDIOVASCULAR: Regular rate and rhythm without murmurs, gallops, or rubs. RESPIRATORY: Clear to auscultation. Breath sounds equal bilaterally. No wheezes , rales, or rhonchi. GASTROINTESTINAL: Abdomen soft, non-tender, nondistended. No guarding. MUSCULOSKELETAL: Extremities without clubbing, cyanosis, or edema. No joint tenderness, effusion, or edema noted. No calf tenderness. Negative Homans sign bilaterally. NEUROLOGICAL: Awake and alert. Normal speech. Five out of 5 muscle strength in arms. 4/5 muscle strength in the RLE. 3/5 muscle strength in the distal LLE. 2 /5 muscle strength in the proximal LLE. Procedures none A/P Problem List: (1) Sepsis ICD Code: A41.9 - Sepsis, unspecified organism Status: Acute Assessment and Plan The patient is a pleasant 72 year old male with a history of tranverse myeltiis who presents to the ED for worsening lower extremity weakness over the last few days. He admitted to having subjective fevers and cough in the last few days, and initial workup revealed elevated WBC at 19.8, left basilar patchiness suspicious for pneumonia on CXR, and a positive UA. Patient meets sepsis criteria due to tachycardia, WBC >12,000 and suspected infection. He was given ceftriaxone 1000mg once and azithromycin 500 mg once in the ER. Sepsis (leucocytosis, tachycardia source of ifx PNA and UTI) on admission Pneumonia Proteus UTI Clinically improved discontinue IV fluids Discontinue Rocephin and Zithromax switch to p.o. ciprofloxacin based on DIANA Transverse myelitis Neurology recommended Solu-Medrol 125 mg IV every 8 hours for 3-5 days Hypertension Normotensive, will monitor Hyperlipidemia Continue home med, Lipitor 20mg PO daily New onset A. fib with CVR. Telemetry shows sinus rhythm. [id number] of 2 for HTN and age refusing anticoagulation secondary to history of severe hemorrhoidal bleeding. Agrees with aspirin. Unremarkable TSH EKG showing sinus rhythm tracing interpreted by me follow-up to the echo. NSVT. Asymptomatic. Repeat BMP and magnesium today. Unable to start beta- tashia secondary to baseline bradycardia. DVT prophylaxis: SCD/TEDs/Lovenox. Discharge Planning Refer patient to [facility] inpatient rehab. Stable for discharge if echocardiogram unremarkable Amando Crowell MD Oct 03, 2017 12:33
--- NOTE | 2017-10-03 19:23 | ECHRPT ---
Indication: ATRIAL FIB CONCLUSIONS The left ventricular systolic function is normal with an estimated ejection fraction in the range of 55-60%. Normal left ventricular size. Mild concentric left ventricular hypertrophy. No regional wall motion abnormalities are present. Aortic valve sclerosis is present. Mild aortic valve regurgitation. There is trace tricuspid valve regurgitation. The estimated pulmonary arterial pressure is 43 mmHg. BP: 154 / 80 HR: 72 Rhythm: MEASUREMENTS (Male / Female) Normal Values Technical Quality: 2D ECHO LV Diastolic Diameter PLAX 4.5 cm 4.2 - 5.9 / 3.9 - 5.3 cm LV Systolic Diameter PLAX 3.3 cm IVS Diastolic Thickness 1.2 cm 0.6 - 1.0 / 0.6 - 0.9 cm LVPW Diastolic Thickness 1.2 cm 0.6 - 1.0 / 0.6 - 0.9 cm LV Relative Wall Thickness 0.5 LVOT Diameter 2.2 cm LA Systolic Diameter LX 3.9 cm 3.0 - 4.0 / 2.7 - 3.8 cm LV Ejection Fraction MOD 4C 59.4 % LV Cardiac Index MOD 4C 1777.6 cm/minm LV Ejection Fraction 4C AL 60.4 % LV Cardiac Index 4C AL 1919.6 cm/minm M-MODE Aortic Root Diameter MM 2.4 cm LA Systolic Diameter MM 4.0 cm LA Ao Ratio MM 1.7 AV Cusp Separation MM 2.0 cm DOPPLER AV Peak Velocity 130.0 cm/s AV Peak Gradient 6.8 mmHg AI Peak Velocity 372.5 cm/s AI Peak Gradient 55.5 mmHg AI Pressure Half Time 857.5 ms LVOT Peak Velocity 123.0 cm/s LVOT Peak Gradient 6.1 mmHg AV Area Cont Eq pk 3.6 cm MV Area PHT 2.7 cm Mitral E Point Velocity 133.0 cm/s Mitral A Point Velocity 160.0 cm/s Mitral E to A Ratio 0.8 LV E' Lateral Velocity 7.9 cm/s Mitral E to LV E' Lateral Ratio 16.8 TR Peak Velocity 287.0 cm/s TR Peak Gradient 32.9 mmHg Right Atrial Pressure 10.0 mmHg Pulmonary Artery Systolic Pressu 42.9 mmHg Right Ventricular Systolic Press 42.9 mmHg PV Peak Velocity 122.0 cm/s PV Peak Gradient 6.0 mmHg FINDINGS LEFT VENTRICLE The left ventricular systolic function is normal with an estimated ejection fraction in the range of 55-60%. Normal left ventricular size. Mild concentric left ventricular hypertrophy. No regional wall motion abnormalities are present. RIGHT VENTRICLE Normal right ventricular size and systolic function. LEFT ATRIUM The left atrial size is normal. RIGHT ATRIUM The right atrial size is normal. ATRIAL SEPTUM Normal atrial septal thickness without atrial level shunting by limited color doppler interrogation. AORTA The aortic root and proximal ascending aorta are normal in size on limited imaging. MITRAL VALVE Structurally normal mitral valve. No mitral valve stenosis or regurgitation. AORTIC VALVE Trileaflet aortic valve. Aortic valve sclerosis is present. Mild aortic valve regurgitation. TRICUSPID VALVE Structurally normal tricuspid valve. There is trace tricuspid valve regurgitation. The estimated pulmonary arterial pressure is 42.9 mmHg. PULMONARY VALVE Trivial pulmonary valve regurgitation. VESSELS The inferior vena cava is normal in size. PERICARDIUM No pericardial effusion. Alexandre Mendenhall MD, FACC (Electronically Signed) Final Date:03 October 2017 19:21
[2017-10-03] MEDS: ATORVASTATIN 20 MG TAB PO SCH (20:54)
[2017-10-03] MEDS: TEMAZEPAM 15 MG CAP PO PRN (20:54)
[2017-10-03] MEDS: CIPROFLOXACIN 500 MG TAB PO SCH (20:55)
[2017-10-04] VITALS (11 sets, daily range): BP systolic 124–153; BP diastolic 63–78; PULSE 61–77; RESP 16–19; TEMP 97.5–98.2; O2SAT 94–96
[2017-10-04] MEDS: methylPREDNISolone SOD SUCC 125 MG/2 ML VIAL IV PUSH SCH ×3 (05:30→22:42)
[2017-10-04 07:50] LABS: BICARBONATE 24.4 MEQ/L (21.0-32.0); CALCIUM 8.4 MG/DL (8.5-10.1); CREATININE 0.81 MG/DL (0.60-1.30)
[2017-10-04] MEDS: DOCUSATE SODIUM 50 MG/SENNA 8.6 MG TAB PO SCH ×2 (08:28→20:22)
[2017-10-04] MEDS: CIPROFLOXACIN 500 MG TAB PO SCH ×2 (08:28→20:22)
[2017-10-04] MEDS: ENOXAPARIN SODIUM 40 MG/0.4 ML SYRINGE SQ SCH (08:28)
[2017-10-04] MEDS: ASPIRIN EC 81 MG TABEC PO SCH (08:28)
[2017-10-04] MEDS: SODIUM CHLORIDE 0.9% FLUSH 10 ML FLUSH IV FLUSH SCH ×2 (08:29→20:23)
[2017-10-04] MEDS ORDERED: SOLU125I IV PUSH (11:33)
--- NOTE | 2017-10-04 14:06 | HHI.PR ---
Subjective Remarks Follow-up transverse myelitis. Feels he is stronger today was able to ambulate a few steps. Patient is cleared for discharge to [facility] when authorized by insurance. Discussed with pillowcase folder and RN Objective Vitals Vital Signs Date Time Temp Pulse Resp B/P (MAP) Pulse Ox O2 Delivery O2 Flow Rate FiO2 10/04/17 10:15 72 10/04/17 08:35 95 Room Air 10/04/17 04:00 Room Air 10/04/17 04:00 97.5 67 19 128/63 (84) 96 10/04/17 03:54 77 10/04/17 00:34 61 10/04/17 00:00 98.1 61 19 124/72 (89) 94 10/04/17 00:00 Room Air 10/03/17 20:03 72 10/03/17 20:00 Room Air 10/03/17 20:00 98.2 65 19 127/69 (88) 95 10/03/17 16:00 65 10/03/17 16:00 97.8 70 20 130/66 (87) 96 I/O 10/03/17 10/03/17 10/03/17 10/04/17 10/04/17 10/04/17 07:00 15:00 23:00 07:00 15:00 23:00 Intake Total 480 ml 1310 ml 120 ml Output Total 1100 ml 2075 ml 450 ml Balance -620 ml -765 ml -330 ml Intake Oral 480 ml 960 ml 120 ml IV Total 350 ml Output Urine Total 1100 ml 2075 ml 450 ml # Bowel Movements 0 0 0 Result Diagram: 10/01/17 0525 10/04/17 0645 Imaging Last Impressions Thoracic Spine MRI 10/01/17 0000 Signed Impressions: Service Date/Time: Sunday, October 01, 2017 07:37 - CONCLUSION: Stable appearance of thoracic cord with focal abnormality again noted at the T5-6 level with atrophy and increased signal on the T2-weighted sequence. There is no abnormal enhancement. Haider Jorgensen MD Cervical Spine MRI 10/01/17 0000 Signed Impressions: Service Date/Time: Sunday, October 01, 2017 07:37 - CONCLUSION: 1. Subtle focal questionable area of signal abnormality again noted in the cord at the C3-4 level without significant change from the prior study. This may or present mild gliosis. 2. Borderline central canal stenosis at the C3-4, C4-5 and C5-6 levels secondary to disc osteophyte complexes with questionable mild flattening of the anterior thecal sac. The residual AP diameter of the canal measures 7-8 mm in these regions. Haider Jorgensen MD Chest X-Ray 09/30/17 0000 Signed Impressions: Service Date/Time: Saturday, September 30, 2017 07:05 - CONCLUSION: 1. Left basilar patchiness consistent with probable pneumonia. Clinical correlation is recommended. 2. Cardiomegaly. Gatito Quiñonez MD Objective Remarks GENERAL: This is a well-nourished, well-developed patient, in no apparent distress. SKIN: No rashes, ecchymoses or lesions. Cool and dry. CARDIOVASCULAR: Regular rate and rhythm without murmurs, gallops, or rubs. RESPIRATORY: Clear to auscultation. Breath sounds equal bilaterally. No wheezes , rales, or rhonchi. GASTROINTESTINAL: Abdomen soft, non-tender, nondistended. No guarding. MUSCULOSKELETAL: Extremities without clubbing, cyanosis, or edema. No joint tenderness, effusion, or edema noted. No calf tenderness. Negative Homans sign bilaterally. NEUROLOGICAL: Awake and alert. Normal speech. Five out of 5 muscle strength in arms. 4/5 muscle strength in the RLE. 3/5 muscle strength in the distal LLE. 2 /5 muscle strength in the proximal LLE. Procedures none A/P Problem List: (1) Sepsis ICD Code: A41.9 - Sepsis, unspecified organism Status: Acute Assessment and Plan The patient is a pleasant 72 year old male with a history of tranverse myeltiis who presents to the ED for worsening lower extremity weakness over the last few days. He admitted to having subjective fevers and cough in the last few days, and initial workup revealed elevated WBC at 19.8, left basilar patchiness suspicious for pneumonia on CXR, and a positive UA. Patient meets sepsis criteria due to tachycardia, WBC >12,000 and suspected infection. He was given ceftriaxone 1000mg once and azithromycin 500 mg once in the ER. Sepsis (leucocytosis, tachycardia source of ifx PNA and UTI) on admission Pneumonia Proteus UTI Clinically improved discontinue IV fluids Discontinue Rocephin and Zithromax switched to p.o. ciprofloxacin based on DIANA Transverse myelitis. Stable Neurology recommended Solu-Medrol 125 mg IV every 8 hours for 3-5 days Continue aggressive rehabilitation Hypertension Normotensive, will monitor Hyperlipidemia Continue home med, Lipitor 20mg PO daily New onset A. fib with CVR. Telemetry shows sinus rhythm. [id number] of 2 for HTN and age refusing anticoagulation secondary to history of severe hemorrhoidal bleeding. Agrees with aspirin. Unremarkable TSH EKG showing sinus rhythm tracing interpreted by me follow-up t echocardiogram with EF of 55 % and LVH NSVT. Asymptomatic. Repeat BMP and magnesium today. Unable to start beta- tashia secondary to baseline bradycardia. DVT prophylaxis: SCD/TEDs/Lovenox. Discharge Planning Refer patient to [facility] inpatient rehab. Stable for discharge Amando Crowell MD Oct 04, 2017 14:06
[2017-10-04] MEDS ORDERED: POTASSIUM CHLORIDE 20 MEQ CONTROLLED RELEASE TAB PO ONE (18:15)
[2017-10-04] MEDS: TEMAZEPAM 15 MG CAP PO PRN (20:22)
[2017-10-04] MEDS: ATORVASTATIN 20 MG TAB PO SCH (20:23)
[2017-10-05] VITALS (10 sets, daily range): BP systolic 114–146; BP diastolic 53–76; PULSE 60–74; RESP 16–19; TEMP 97.3–97.7; O2SAT 93–97
[2017-10-05] MEDS: methylPREDNISolone SOD SUCC 125 MG/2 ML VIAL IV PUSH SCH ×3 (05:24→21:13)
[2017-10-05] MEDS: CIPROFLOXACIN 500 MG TAB PO SCH ×2 (10:12→21:14)
[2017-10-05] MEDS: DOCUSATE SODIUM 50 MG/SENNA 8.6 MG TAB PO SCH ×2 (10:12→21:00)
[2017-10-05] MEDS: SODIUM CHLORIDE 0.9% FLUSH 10 ML FLUSH IV FLUSH SCH ×2 (10:12→21:14)
[2017-10-05] MEDS: ASPIRIN EC 81 MG TABEC PO SCH (10:12)
[2017-10-05] MEDS: ENOXAPARIN SODIUM 40 MG/0.4 ML SYRINGE SQ SCH (10:13)
--- NOTE | 2017-10-05 12:13 | HHI.PR ---
Subjective Remarks Follow-up UTI, pneumonia and transverse myelitis. He is doing better out of bed to chair. Patient's insurance has denied inpatient rehabilitation will arrange for transfer to SNF if IV management is steroids will be continued and cleared by neurology. Discussed with nursing Objective Vitals Vital Signs Date Time Temp Pulse Resp B/P (MAP) Pulse Ox O2 Delivery O2 Flow Rate FiO2 10/05/17 08:02 97.5 65 18 135/76 (95) 93 10/05/17 04:00 64 10/05/17 04:00 Room Air 10/05/17 03:42 97.3 60 16 127/71 (89) 94 10/05/17 00:00 71 10/05/17 00:00 Room Air 10/04/17 23:50 98.2 75 16 143/78 (99) 96 10/04/17 20:00 62 10/04/17 20:00 Room Air 10/04/17 19:42 97.6 71 16 153/71 (98) 96 10/04/17 16:42 64 I/O 10/04/17 10/04/17 10/04/17 10/05/17 10/05/17 10/05/17 06:59 14:59 22:59 06:59 14:59 22:59 Intake Total 120 ml 240 ml Output Total 450 ml 475 ml Balance -330 ml -235 ml Intake Oral 120 ml 240 ml Output Urine Total 450 ml 475 ml # Bowel Movements 0 0 Result Diagram: 10/01/17 0525 10/04/17 0645 Imaging Last Impressions Thoracic Spine MRI 10/01/17 0000 Signed Impressions: Service Date/Time: Sunday, October 01, 2017 07:37 - CONCLUSION: Stable appearance of thoracic cord with focal abnormality again noted at the T5-6 level with atrophy and increased signal on the T2-weighted sequence. There is no abnormal enhancement. Hiader Jorgensen MD Cervical Spine MRI 10/01/17 0000 Signed Impressions: Service Date/Time: Sunday, October 01, 2017 07:37 - CONCLUSION: 1. Subtle focal questionable area of signal abnormality again noted in the cord at the C3-4 level without significant change from the prior study. This may or present mild gliosis. 2. Borderline central canal stenosis at the C3-4, C4-5 and C5-6 levels secondary to disc osteophyte complexes with questionable mild flattening of the anterior thecal sac. The residual AP diameter of the canal measures 7-8 mm in these regions. Haider Jorgensen MD Chest X-Ray 09/30/17 0000 Signed Impressions: Service Date/Time: Saturday, September 30, 2017 07:05 - CONCLUSION: 1. Left basilar patchiness consistent with probable pneumonia. Clinical correlation is recommended. 2. Cardiomegaly. Gatito Quiñonez MD Objective Remarks GENERAL: This is a well-nourished, well-developed patient, in no apparent distress. SKIN: No rashes, ecchymoses or lesions. Cool and dry. CARDIOVASCULAR: Regular rate and rhythm without murmurs, gallops, or rubs. RESPIRATORY: Clear to auscultation. Breath sounds equal bilaterally. No wheezes , rales, or rhonchi. GASTROINTESTINAL: Abdomen soft, non-tender, nondistended. No guarding. MUSCULOSKELETAL: Extremities without clubbing, cyanosis but with trace leg pitting edema. No joint tenderness, effusion, or edema noted. No calf tenderness. Negative Homans sign bilaterally. NEUROLOGICAL: Awake and alert. Normal speech. Five out of 5 muscle strength in arms. 4/5 muscle strength in the RLE. 3/5 muscle strength in the distal LLE. 2 /5 muscle strength in the proximal LLE. Procedures none A/P Problem List: (1) Sepsis ICD Code: A41.9 - Sepsis, unspecified organism Status: Acute Assessment and Plan The patient is a pleasant 72 year old male with a history of tranverse myeltiis who presents to the ED for worsening lower extremity weakness over the last few days. He admitted to having subjective fevers and cough in the last few days, and initial workup revealed elevated WBC at 19.8, left basilar patchiness suspicious for pneumonia on CXR, and a positive UA. Patient meets sepsis criteria due to tachycardia, WBC >12,000 and suspected infection. He was given ceftriaxone 1000mg once and azithromycin 500 mg once in the ER. Sepsis (leucocytosis, tachycardia source of ifx PNA and UTI) on admission Pneumonia Proteus UTI Clinically stable discontinued IV fluids, Rocephin and Zithromax switch to p.o. ciprofloxacin based on DIANA. Repeat chest x-ray in 6 weeks Transverse myelitis. Stable Neurology recommended Solu-Medrol 125 mg IV every 8 hours for 3-5 days Continue aggressive rehabilitation Hypertension Normotensive, will monitor Hyperlipidemia Continue home med, Lipitor 20mg PO daily New onset A. fib with CVR. Telemetry shows sinus rhythm. [id number] of 2 for HTN and age refusing anticoagulation secondary to history of severe hemorrhoidal bleeding. Agrees with aspirin. Unremarkable TSH EKG showing sinus rhythm tracing interpreted by me follow-up echocardiogram with EF of 55% and LVH NSVT. Asymptomatic. Unable to start beta-tashia secondary to baseline bradycardia. DVT prophylaxis: SCD/TEDs/Lovenox. Discharge Planning Stable for discharge when alf facility arranged Amando Crowell MD Oct 05, 2017 12:13
--- NOTE | 2017-10-05 15:24 | HHI.DS ---
Discharge Summary Admission Date Sep 30, 2017 at 08:25 Discharge Date: Oct 05, 2017 Admitting Diagnosis Sepsis, pneumonia, cystitis, leukocytosis, hx of Tranverse myelitis (1) Sepsis ICD Code: A41.9 - Sepsis, unspecified organism Diagnosis: Principal Status: Acute Procedures none Brief History - From Admission The patient is a pleasant 72 year old man with a history of transverse myelitis who presented to the ER on 09/30/17 due to worsening LE weakness. He has bilateral lower extremity weakness at baseline, left greater than right. He uses a walker at home usually. Over the last 2-3 days, he has had an increase of weakness in his lower extremities, which culminated into a fall in which the patient could not get himself up. He admits to having some subjective fevers, chills and non-productive cough, but denies nausea, vomiting and diarrhea. He denies changes in urinary frequency and dysuria. CBC/BMP: 10/01/17 0525 10/04/17 0645 Significant Findings Laboratory Tests Test 10/02/17 17:17 10/04/17 06:45 Random Glucose 145 MG/DL (74-106) Calcium Level 8.4 MG/DL (8.5-10.1) Imaging Last Impressions Thoracic Spine MRI 10/01/17 0000 Signed Impressions: Service Date/Time: Sunday, October 01, 2017 07:37 - CONCLUSION: Stable appearance of thoracic cord with focal abnormality again noted at the T5-6 level with atrophy and increased signal on the T2-weighted sequence. There is no abnormal enhancement. Haider Jorgensen MD Cervical Spine MRI 10/01/17 0000 Signed Impressions: Service Date/Time: Sunday, October 01, 2017 07:37 - CONCLUSION: 1. Subtle focal questionable area of signal abnormality again noted in the cord at the C3-4 level without significant change from the prior study. This may or present mild gliosis. 2. Borderline central canal stenosis at the C3-4, C4-5 and C5-6 levels secondary to disc osteophyte complexes with questionable mild flattening of the anterior thecal sac. The residual AP diameter of the canal measures 7-8 mm in these regions. Haider Jorgensen MD Chest X-Ray 09/30/17 0000 Signed Impressions: Service Date/Time: Saturday, September 30, 2017 07:05 - CONCLUSION: 1. Left basilar patchiness consistent with probable pneumonia. Clinical correlation is recommended. 2. Cardiomegaly. Gatito Quiñonez MD PE at Discharge GENERAL: This is a well-nourished, well-developed patient, in no apparent distress. SKIN: No rashes, ecchymoses or lesions. Cool and dry. CARDIOVASCULAR: Regular rate and rhythm without murmurs, gallops, or rubs. RESPIRATORY: Clear to auscultation. Breath sounds equal bilaterally. No wheezes , rales, or rhonchi. GASTROINTESTINAL: Abdomen soft, non-tender, nondistended. No guarding. MUSCULOSKELETAL: Extremities without clubbing, cyanosis but with trace leg pitting edema. No joint tenderness, effusion, or edema noted. No calf tenderness. Negative Homans sign bilaterally. NEUROLOGICAL: Awake and alert. Normal speech. Five out of 5 muscle strength in arms. 4/5 muscle strength in the RLE. 3/5 muscle strength in the distal LLE. 2 /5 muscle strength in the proximal LLE. Hospital Course The patient is a pleasant 72 year old male with a history of tranverse myeltiis who presents to the ED for worsening lower extremity weakness over the last few days. He admitted to having subjective fevers and cough in the last few days, and initial workup revealed elevated WBC at 19.8, left basilar patchiness suspicious for pneumonia on CXR, and a positive UA. Patient meets sepsis criteria due to tachycardia, WBC >12,000 and suspected infection. He was given ceftriaxone 1000mg once and azithromycin 500 mg once in the ER. Sepsis (leucocytosis, tachycardia source of ifx PNA and UTI) on admission Pneumonia Proteus UTI Clinically stable discontinued IV fluids, Rocephin and Zithromax switch to p.o. ciprofloxacin based on DIANA. Repeat chest x-ray in 6 weeks Transverse myelitis. Stable Neurology recommended Solu-Medrol 125 mg IV every 8 hours for 3-5 days Continue aggressive rehabilitation Hypertension Normotensive, will monitor Hyperlipidemia Continue home med, Lipitor 20mg PO daily New onset A. fib with CVR. Telemetry shows sinus rhythm. [id number] of 2 for HTN and age refusing anticoagulation secondary to history of severe hemorrhoidal bleeding. Agrees with aspirin. Unremarkable TSH EKG showing sinus rhythm tracing interpreted by me follow-up echocardiogram with EF of 55% and LVH NSVT. Asymptomatic. Unable to start beta-tashia secondary to baseline bradycardia. DVT prophylaxis: SCD/TEDs/Lovenox. Pt Condition on Discharge: Stable Discharge Disposition: Discharge to SNF Discharge Time: > 30 minutes Discharge Instructions DIET: Follow Instructions for: Heart Healthy Diet Activities you can perform: Regular-No Restrictions Activities to Avoid: Driving Follow up Referrals: Neurology - 1 Week PCP Follow-up - 1 Week New Orders: X-RAY CHEST PA & LAT - 6 Weeks New Medications: Ciprofloxacin (Cipro) 500 Mg Tab 500 MG PO BID for Infection, #14 TAB [address] (Aspirin DR) 81 Mg Tabdr 81 MG PO DAILY for Prevent Blood Clot, #30 TAB Methylprednisolone Sod Succinate Inj (Solu-Medrol Inj) 125 Mg/2 Ml Inj 125 MG IV PUSH Q8HR for Control Inflammation for 12 Days, INJECTION dc 10/08/17 Continued Medications: Atorvastatin (Atorvastatin) 20 Mg Tab 20 MG PO HS for Cholesterol Management, #30 TAB 0 Refills Tramadol (Tramadol) 50 Mg Tab 50 MG PO Q8HR PRN for PAIN, #10 TAB 0 Refills (This prescription has been renewed) Amando Crowell MD Oct 05, 2017 15:24
--- NOTE | 2017-10-05 17:06 | PD.CONS ---
[facility] Service Rehabilitation Medicine Consult Requested By Robert Velasquez MD Reason for Consult Comprehensive rehabilitation evaluation. Primary Care Physician Emma Wasserman MD History of Present Illness Haider Pritchett is a 72-year-old vyfcv-rlno-kueajfsy male admitted to [facility] 09/30/17 with increased lower extremity weakness. He was noted to have sepsis with pneumonia/UTI. Thoracic spine MRI 10/01/17 showed: stable appearance of thoracic cord with focal abnormality again noted at the T5-6 level with atrophy and increased signal on the T2-weighted sequence. There is no abnormal enhancement. Cervical spine MRI 10/01/17 showed: subtle focal questionable area of signal abnormality again noted in the cord at the C3-4 level without significant change from the prior study. This may or present mild gliosis. Borderline central canal stenosis at the C3-4, C4-5 and C5-6 levels secondary to disc osteophyte complexes with questionable mild flattening of the anterior thecal sac. The residual AP diameter of the canal measures 7-8 mm in these regions. He was treated with Solu-Medrol and reports significant improvement in his lower extremity strength. He feels that he is close to baseline.. Review of Systems Constitutional: COMPLAINS OF: Fatigue Eyes: DENIES: Diplopia Ears, nose, mouth, throat: DENIES: Hearing loss Respiratory: DENIES: Shortness of breath Cardiovascular: DENIES: Chest pain Gastrointestinal: COMPLAINS OF: Constipation, DENIES: Abdominal pain Genitourinary: COMPLAINS OF: Urinary incontinence Musculoskeletal: COMPLAINS OF: Back pain Hematologic/lymphatic: DENIES: Bruising Immunologic/allergic: DENIES: Urticaria Neurologic: COMPLAINS OF: Localized weakness, Paresthesias, DENIES: Headache, Speech Problems Psychiatric: DENIES: Confusion Past Family Social History Allergies: Coded Allergies: No Known Allergies (Verified Allergy, Unknown, 09/30/17) Past Medical History Transverse myelitis Hypertension Hyperlipidemia Right cryptorchidism Peripheral neuropathy (bilateral lower extremity sensory/motor) S/P L4-L5 resection of neurofibroma and laminectomy DJD Gliosis on C3 and C4 on previous MRI Lumbar disc bulges Past Surgical History Left knee arthroscopic surgery Tonsillectomy and adenoidectomy Left inguinal hernia repair x 2 Prostate biopsy in 2010, benign L4 L5 laminectomy and neurofibroma resetion in 2007 Unsuccessful surgery for right undescended testicle at age 6. Current Medications Current Medications Medications (Trade) Dose Ordered Sig/Eze Route Start Time Stop Time Status Last Admin (Lipitor) 20 mg HS PO 09/30/17 21:00 10/04/17 20:23 (Ultram) 50 mg Q8H PRN PO 09/30/17 08:30 09/30/17 21:37 (NS Flush) 2 ml UNSCH PRN IV FLUSH 09/30/17 08:30 (NS Flush) 2 ml BID IV FLUSH 09/30/17 09:00 10/05/17 10:12 (Tylenol) 650 mg Q4H PRN PO 09/30/17 08:30 (Zofran Inj) 4 mg Q6H PRN IVP 09/30/17 08:30 (Restoril) 15 mg HS PRN PO 09/30/17 08:30 10/04/17 20:22 (Lovenox Inj) 40 mg Q24H SQ 09/30/17 09:00 10/05/17 10:13 (Narcan Inj) 0.4 mg UNSCH PRN IV PUSH 09/30/17 08:30 (Monique-Colace) 1 tab BID PO 09/30/17 09:00 10/05/17 10:12 (Milk Of Magnesia Liq) 30 ml Q12H PRN PO 09/30/17 08:30 10/01/17 14:00 (Senokot) 17.2 mg Q12H PRN PO 09/30/17 08:30 (Dulcolax Supp) 10 mg DAILY PRN RECTAL 09/30/17 08:30 (Lactulose Liq) 30 ml DAILY PRN PO 09/30/17 08:30 (Ecotrin Ec) 81 mg DAILY PO 10/02/17 16:00 10/05/17 10:12 (SoluMEDROL INJ) 125 mg Q8HR IV PUSH 10/03/17 09:15 10/08/17 09:14 10/05/17 14:38 (Cipro) 500 mg Q12HR PO 10/03/17 21:00 10/11/17 20:59 10/05/17 10:12 Family History Father of COPD, HTN, [place] Mother of ovarian cancer, valve replacement surgery Social History Cigar smoking, quit 25 years ago Rare alcohol Lives with his in [place], [place]. Prior to admission was using a walker to ambulate Exam I&O / VS Vital Signs Date Time Temp Pulse Resp B/P (MAP) Pulse Ox O2 Delivery O2 Flow Rate FiO2 10/05/17 16:00 Room Air 10/05/17 15:52 71 10/05/17 12:02 97.4 66 19 114/53 (73) 97 10/05/17 12:00 Room Air 10/05/17 11:58 66 10/05/17 08:02 97.5 65 18 135/76 (95) 93 10/05/17 07:49 74 10/05/17 04:00 64 10/05/17 04:00 Room Air 10/05/17 03:42 97.3 60 16 127/71 (89) 94 10/05/17 00:00 71 10/05/17 00:00 Room Air 10/04/17 23:50 98.2 75 16 143/78 (99) 96 10/04/17 20:00 62 10/04/17 20:00 Room Air 10/04/17 19:42 97.6 71 16 153/71 (98) 96 General: No acute distress Respiratory: Lungs CTA, Non-labored respirations, BS equal Gastrointestinal: Positive Bowel Sounds, Distended (Soft), Non-Tender Cardiovascular: Normal rate, Regular Rhythm Musculoskeletal: Swelling (2+ lower extremity edema), No calf tenderness Psychiatric: Cooperative, Appropriate mood & affect Orientation: oriented to Self, oriented to Place, oriented to Time, oriented to Situation Neurologic: Cranial Nerves (Intact 2 through 12) Motor: Right Upper Extremity (4+/5), Left Upper Extremity (4+/5), Right Lower Extremity (3+4/5), Left Lower Extremity (2+/5) Sensory Decreased to light touch in the distal lower extremities Clonus: Negative Assessment and Plan Diagnosis: (1) Transverse myelitis ICD Codes: G37.3 - Acute transverse myelitis in demyelinating disease of central nervous system Status: Chronic (2) Paraplegia ICD Codes: G82.20 - Paraplegia, unspecified Status: Chronic Assessment 1. Transverse myelitis status post treatment with Solu-Medrol with significant improvement in lower extremity strength 2. Hypertension 3. Hyperlipidemia 4. Peripheral neuropathy (bilateral lower extremity sensory/motor) 5. DJD Plan 1. Patient is progressing with physical therapy. Now minimal to contact-guard to ambulate 30 feet with a rolling walker which is close to patient's baseline per his report. Continue to mobilize as tolerated 2. Occupational therapy is addressing ADLs. Now set up for upper body dressing and moderate assistance for lower body dressing. Continue to maximize independence 3. Case management is addressing discharge planning and patient is for transfer to [facility] facility. Patient will likely need ongoing home health at discharge 4. Continue close supervision for fall prevention 5. Continue Lovenox for DVT prophylaxis 6. Will follow while hospitalized and is appropriate as discharge Thank you for this consult. Shama Marroquin MD Oct 05, 2017 17:06
--- NOTE | 2017-10-05 18:16 | HHI.PR ---
Review/Management Diagnosis transverse myelitis Plan rehab consult continue solumedrol through 10/08 Diagnosis/Plan: Subjective Subjective Comments No acute events reported Now on solumedrol 125 mg iv Q8 hr and reports improvement in LE strength Active Medications Current Medications Medications (Trade) Dose Ordered Sig/Eze Route Start Time Stop Time Status Last Admin (Lipitor) 20 mg HS PO 09/30/17 21:00 10/04/17 20:23 (Ultram) 50 mg Q8H PRN PO 09/30/17 08:30 09/30/17 21:37 (NS Flush) 2 ml UNSCH PRN IV FLUSH 09/30/17 08:30 (NS Flush) 2 ml BID IV FLUSH 09/30/17 09:00 10/05/17 10:12 (Tylenol) 650 mg Q4H PRN PO 09/30/17 08:30 (Zofran Inj) 4 mg Q6H PRN IVP 09/30/17 08:30 (Restoril) 15 mg HS PRN PO 09/30/17 08:30 10/04/17 20:22 (Lovenox Inj) 40 mg Q24H SQ 09/30/17 09:00 10/05/17 10:13 (Narcan Inj) 0.4 mg UNSCH PRN IV PUSH 09/30/17 08:30 (Monique-Colace) 1 tab BID PO 09/30/17 09:00 10/05/17 10:12 (Milk Of Magnesia Liq) 30 ml Q12H PRN PO 09/30/17 08:30 10/01/17 14:00 (Senokot) 17.2 mg Q12H PRN PO 09/30/17 08:30 (Dulcolax Supp) 10 mg DAILY PRN RECTAL 09/30/17 08:30 (Lactulose Liq) 30 ml DAILY PRN PO 09/30/17 08:30 (Ecotrin Ec) 81 mg DAILY PO 10/02/17 16:00 10/05/17 10:12 (SoluMEDROL INJ) 125 mg Q8HR IV PUSH 10/03/17 09:15 10/08/17 09:14 10/05/17 14:38 (Cipro) 500 mg Q12HR PO 10/03/17 21:00 10/11/17 20:59 10/05/17 10:12 Allergies Allergies Coded Allergies No Known Allergies (Verified Allergy, Unknown, 09/30/17) Exam I&O / VS Vital Signs Date Time Temp Pulse Resp B/P (MAP) Pulse Ox O2 Delivery O2 Flow Rate FiO2 10/05/17 16:02 97.5 66 19 139/68 (91) 97 10/05/17 16:00 Room Air 10/05/17 15:52 71 10/05/17 12:02 97.4 66 19 114/53 (73) 97 10/05/17 12:00 Room Air 10/05/17 11:58 66 10/05/17 08:02 97.5 65 18 135/76 (95) 93 10/05/17 07:49 74 10/05/17 04:00 64 10/05/17 04:00 Room Air 10/05/17 03:42 97.3 60 16 127/71 (89) 94 10/05/17 00:00 71 10/05/17 00:00 Room Air 10/04/17 23:50 98.2 75 16 143/78 (99) 96 10/04/17 20:00 62 10/04/17 20:00 Room Air 10/04/17 19:42 97.6 71 16 153/71 (98) 96 Exam Comments alert, speech normal CN intact MOTOR 5/5 BUE. 4/5 BLE Objective Micro and Labs Date/Time Source Procedure Growth Status 09/30/17 07:10 Urine Clean Catch Urine Culture - Final Proteus Mirabilis Complete Robert Velasquez MD PhD Oct 05, 2017 18:16
[2017-10-05] MEDS: ATORVASTATIN 20 MG TAB PO SCH (21:14)
[2017-10-06] VITALS (9 sets, daily range): BP systolic 132–148; BP diastolic 64–88; PULSE 56–68; RESP 13–20; TEMP 97.3–97.9; O2SAT 93–97
[2017-10-06] MEDS: methylPREDNISolone SOD SUCC 125 MG/2 ML VIAL IV PUSH SCH ×3 (05:39→20:24)
[2017-10-06] MEDS: CIPROFLOXACIN 500 MG TAB PO SCH ×2 (08:25→20:25)
[2017-10-06] MEDS: ENOXAPARIN SODIUM 40 MG/0.4 ML SYRINGE SQ SCH (08:25)
[2017-10-06] MEDS: ASPIRIN EC 81 MG TABEC PO SCH (08:25)
[2017-10-06] MEDS: DOCUSATE SODIUM 50 MG/SENNA 8.6 MG TAB PO SCH ×2 (08:25→20:25)
[2017-10-06] MEDS: SODIUM CHLORIDE 0.9% FLUSH 10 ML FLUSH IV FLUSH SCH ×2 (08:26→20:25)
[2017-10-06] MEDS: MAGNESIUM HYDROXIDE SUSP 30 ML CUP PO PRN (13:10)
--- NOTE | 2017-10-06 13:41 | HHI.PR ---
Subjective Remarks Follow-up pneumonia, UTI and transverse myelitis. States he is improving getting stronger ambulating the. Denies UTI symptoms. Discussed with nursing Objective Vitals Vital Signs Date Time Temp Pulse Resp B/P (MAP) Pulse Ox O2 Delivery O2 Flow Rate FiO2 10/06/17 12:00 Room Air 10/06/17 11:48 68 10/06/17 11:31 97.7 62 14 132/70 (90) 93 10/06/17 08:07 58 10/06/17 08:00 97.8 62 13 137/88 (104) 95 10/06/17 08:00 Room Air 10/06/17 04:00 Room Air 10/06/17 04:00 97.7 60 16 148/74 (98) 95 10/06/17 04:00 61 10/06/17 00:00 Room Air 10/06/17 00:00 97.9 63 16 137/75 (95) 95 10/06/17 00:00 60 10/05/17 20:00 97.7 66 18 146/58 (87) 97 10/05/17 20:00 Room Air 10/05/17 20:00 69 10/05/17 16:02 97.5 66 19 139/68 (91) 97 10/05/17 16:00 Room Air 10/05/17 15:52 71 I/O 10/05/17 10/05/17 10/05/17 10/06/17 10/06/17 10/06/17 07:00 15:00 23:00 07:00 15:00 23:00 Intake Total 240 ml 420 ml Output Total 475 ml 900 ml 660 ml Balance -235 ml -480 ml -660 ml Intake Oral 240 ml 420 ml Output Urine Total 475 ml 900 ml 660 ml # Voids 4 # Bowel Movements 0 1 Result Diagram: 10/04/17 0645 Imaging Last Impressions Thoracic Spine MRI 10/01/17 0000 Signed Impressions: Service Date/Time: Sunday, October 01, 2017 07:37 - CONCLUSION: Stable appearance of thoracic cord with focal abnormality again noted at the T5-6 level with atrophy and increased signal on the T2-weighted sequence. There is no abnormal enhancement. Haider Jorgensen MD Cervical Spine MRI 10/01/17 0000 Signed Impressions: Service Date/Time: Sunday, October 01, 2017 07:37 - CONCLUSION: 1. Subtle focal questionable area of signal abnormality again noted in the cord at the C3-4 level without significant change from the prior study. This may or present mild gliosis. 2. Borderline central canal stenosis at the C3-4, C4-5 and C5-6 levels secondary to disc osteophyte complexes with questionable mild flattening of the anterior thecal sac. The residual AP diameter of the canal measures 7-8 mm in these regions. Haider Jorgensen MD Chest X-Ray 09/30/17 0000 Signed Impressions: Service Date/Time: Saturday, September 30, 2017 07:05 - CONCLUSION: 1. Left basilar patchiness consistent with probable pneumonia. Clinical correlation is recommended. 2. Cardiomegaly. Gatito Quiñonez MD Objective Remarks GENERAL: This is a well-nourished, well-developed patient, in no apparent distress. SKIN: No rashes, ecchymoses or lesions. Cool and dry. CARDIOVASCULAR: Regular rate and rhythm without murmurs, gallops, or rubs. RESPIRATORY: Clear to auscultation. Breath sounds equal bilaterally. No wheezes , rales, or rhonchi. GASTROINTESTINAL: Abdomen soft, non-tender, nondistended. No guarding. MUSCULOSKELETAL: Extremities without clubbing, cyanosis but with trace leg pitting edema. No joint tenderness, effusion, or edema noted. No calf tenderness. Negative Homans sign bilaterally. NEUROLOGICAL: Awake and alert. Normal speech. Improving bilateral lower extremity weakness. Normal speech Procedures none A/P Problem List: (1) Sepsis ICD Code: A41.9 - Sepsis, unspecified organism Status: Acute Assessment and Plan The patient is a pleasant 72 year old male with a history of tranverse myeltiis who presents to the ED for worsening lower extremity weakness over the last few days. He admitted to having subjective fevers and cough in the last few days, and initial workup revealed elevated WBC at 19.8, left basilar patchiness suspicious for pneumonia on CXR, and a positive UA. Patient meets sepsis criteria due to tachycardia, WBC >12,000 and suspected infection. He was given ceftriaxone 1000mg once and azithromycin 500 mg once in the ER. Sepsis (leucocytosis, tachycardia source of ifx PNA and UTI) on admission. Resolved Pneumonia. Improving Proteus UTI. Stable Clinically stable discontinued IV fluids, Rocephin and Zithromax switched to p.o. ciprofloxacin thru 10/11 based on DIANA. Repeat chest x-ray in 6 weeks Transverse myelitis. Stable Neurology recommended Solu-Medrol 125 mg IV every 8 hours for 3-5 days thru 10/08 Continue aggressive rehabilitation. We have medicine consulted Hypertension Normotensive, will monitor Hyperlipidemia Continue home med, Lipitor 20mg PO daily New onset A. fib with CVR. Telemetry shows sinus rhythm. [id number] of 2 for HTN and age refusing anticoagulation secondary to history of severe hemorrhoidal bleeding. Agrees with aspirin. Unremarkable TSH EKG showing sinus rhythm tracing interpreted by me follow-up echocardiogram with EF of 55% and LVH NSVT. Asymptomatic. Unable to start beta-tashia secondary to baseline bradycardia. Tele overnight reviewed showed no recurrence Hyperglycemia on steroids. Repeat BMP DVT prophylaxis: SCD/TEDs/Lovenox. Discharge Planning Stable for discharge when group home facility arranged Amando Crowell MD Oct 06, 2017 13:41
[2017-10-06] MEDS: ATORVASTATIN 20 MG TAB PO SCH (20:25)
[2017-10-07] VITALS (11 sets, daily range): BP systolic 119–141; BP diastolic 60–74; PULSE 53–65; RESP 13–18; TEMP 97.5–98; O2SAT 95–97
[2017-10-07] MEDS: methylPREDNISolone SOD SUCC 125 MG/2 ML VIAL IV PUSH SCH ×3 (05:13→20:15)
[2017-10-07] MEDS: SODIUM CHLORIDE 0.9% FLUSH 10 ML FLUSH IV FLUSH SCH ×2 (07:14→20:15)
[2017-10-07] MEDS: ASPIRIN EC 81 MG TABEC PO SCH (08:25)
[2017-10-07] MEDS: ENOXAPARIN SODIUM 40 MG/0.4 ML SYRINGE SQ SCH (08:25)
[2017-10-07] MEDS: CIPROFLOXACIN 500 MG TAB PO SCH ×2 (08:25→20:14)
[2017-10-07] MEDS: DOCUSATE SODIUM 50 MG/SENNA 8.6 MG TAB PO SCH ×2 (08:25→20:14)
[2017-10-07 11:00] LABS: BICARBONATE 27.9 MEQ/L (21.0-32.0); CALCIUM 7.9 MG/DL (8.5-10.1); CREATININE 0.81 MG/DL (0.60-1.30); MAGNESIUM 2.6 MG/DL (1.5-2.5)
--- NOTE | 2017-10-07 11:05 | HHI.PR ---
Subjective Remarks Constipation remains. Steroid IV treatments will finish tomorrow, SNF will not take patient while on this medication. No new complaints from patient. Objective Vital Signs Date Time Temp Pulse Resp B/P (MAP) Pulse Ox O2 Delivery O2 Flow Rate FiO2 10/07/17 08:00 98.0 65 14 135/67 (89) 10/07/17 04:01 Room Air 10/07/17 04:00 97.8 58 18 134/65 (88) 97 10/07/17 04:00 60 10/07/17 00:00 97.8 56 18 139/70 (93) 96 10/07/17 00:00 53 10/07/17 00:00 Room Air 10/06/17 20:00 Room Air 10/06/17 20:00 97.8 65 18 133/64 (87) 94 10/06/17 20:00 66 10/06/17 16:40 97.3 63 20 138/64 (88) 97 10/06/17 16:00 Room Air 10/06/17 15:53 56 10/06/17 12:00 Room Air 10/06/17 11:48 68 10/06/17 11:31 97.7 62 14 132/70 (90) 93 I/O 10/06/17 10/06/17 10/06/17 10/07/17 10/07/17 10/07/17 07:00 15:00 23:00 07:00 15:00 23:00 Output Total 660 ml Balance -660 ml Output Urine Total 660 ml # Voids 4 Result Diagram: 10/04/17 0645 Objective Remarks GENERAL: NAD, A&Ox3 HEAD: Normocephalic. NECK: Supple, trachea midline. No lymphadenopathy. EYES: No scleral icterus. No injection or drainage. CARDIOVASCULAR: Regular rate and rhythm without murmurs, gallops, or rubs. RESPIRATORY: Breath sounds equal bilaterally. No accessory muscle use. GASTROINTESTINAL: Abdomen soft, non-tender, nondistended. MUSCULOSKELETAL: No cyanosis, or edema. Sacral decubitus ulcer, covered. SKIN: Warm and dry. NEURO: No focal neurological deficitis. Lower extremity paralysis A/P Problem List: (1) Sacral decubitus ulcer ICD Code: L89.159 - Pressure ulcer of sacral region, unspecified stage (2) Paraplegia ICD Code: G82.20 - Paraplegia, unspecified Assessment and Plan 72 year old male with a history of tranverse myeltiis who presents to the ED for worsening lower extremity weakness. He admitted to having subjective fevers and cough in the last few days, and initial workup revealed elevated WBC at 19.8, left basilar patchiness suspicious for pneumonia on CXR, and a positive UA. Patient meets sepsis criteria due to tachycardia, WBC >12,000 and suspected infection. He was given ceftriaxone 1000mg once and azithromycin 500 mg once in the ER. Sepsis (leucocytosis, tachycardia source of ifx PNA and UTI) on admission. Resolved Pneumonia. Improving Proteus UTI. Stable Resolved Transverse myelitis. Stable Neurology recommended Solu-Medrol 125 mg IV every 8 hours for 3-5 days thru 10/08 Continue aggressive rehabilitation. We have medicine consulted Hypertension Normotensive, will monitor Hyperlipidemia Continue home med, Lipitor 20mg PO daily New onset A. fib with CVR Now retuned to and in sinus rhythm continue asporin NSVT Asymptomatic No beta blockers currently because of bradycardia Hyperglycemia on steroids Follow blood sugars DVT prophylaxis SCD/TEDs/Lovenox. Discharge Planning Stable for discharge when snf facility arranged Ryan Neumann MD Oct 07, 2017 11:05
[2017-10-07] MEDS ORDERED: MAGNESIUM CITRATE SOLN 300 ML BTL PO PRN (15:00)
[2017-10-07] MEDS: ATORVASTATIN 20 MG TAB PO SCH (20:14)
[2017-10-07] MEDS: MAGNESIUM HYDROXIDE SUSP 30 ML CUP PO PRN (20:16)
[2017-10-08] VITALS: BP 142/75; PULSE 59; RESP 17; TEMP 97.7; O2SAT 94
[2017-10-08 04:00] VITALS: BP 117/63; PULSE 56; RESP 16; TEMP 97.5; O2SAT 96
[2017-10-08] MEDS: methylPREDNISolone SOD SUCC 125 MG/2 ML VIAL IV PUSH SCH (05:31)
[2017-10-08 08:00] VITALS: BP 140/68; PULSE 56; RESP 19; TEMP 97.7; O2SAT 94
[2017-10-08] MEDS: SODIUM CHLORIDE 0.9% FLUSH 10 ML FLUSH IV FLUSH SCH (10:15)
[2017-10-08] MEDS: DOCUSATE SODIUM 50 MG/SENNA 8.6 MG TAB PO SCH (10:16)
[2017-10-08] MEDS: CIPROFLOXACIN 500 MG TAB PO SCH (10:16)
[2017-10-08] MEDS: ASPIRIN EC 81 MG TABEC PO SCH (10:16)
[2017-10-08] MEDS: ENOXAPARIN SODIUM 40 MG/0.4 ML SYRINGE SQ SCH (10:19)
--- NOTE | 2017-10-08 11:51 | HHI.DS ---
Discharge Summary Admission Date Sep 30, 2017 at 08:25 Discharge Date: Oct 08, 2017 Admitting Diagnosis Sepsis, pneumonia, cystitis, leukocytosis, hx of Tranverse myelitis (1) Sepsis ICD Code: A41.9 - Sepsis, unspecified organism Diagnosis: Principal Status: Acute Procedures none Brief History - From Admission The patient is a pleasant 72 year old man with a history of transverse myelitis who presented to the ER on 09/30/17 due to worsening LE weakness. He has bilateral lower extremity weakness at baseline, left greater than right. He uses a walker at home usually. Over the last 2-3 days, he has had an increase of weakness in his lower extremities, which culminated into a fall in which the patient could not get himself up. He admits to having some subjective fevers, chills and non-productive cough, but denies nausea, vomiting and diarrhea. He denies changes in urinary frequency and dysuria. CBC/BMP: 10/07/17 0933 Significant Findings Laboratory Tests Test 10/07/17 09:33 Blood Urea Nitrogen 35 MG/DL (7-18) Random Glucose 140 MG/DL (74-106) Calcium Level 7.9 MG/DL (8.5-10.1) Magnesium Level 2.6 MG/DL (1.5-2.5) Potassium Level 3.4 MEQ/L (3.5-5.1) PE at Discharge GENERAL: This is a well-nourished, well-developed patient, in no apparent distress. SKIN: No rashes, ecchymoses or lesions. Cool and dry. CARDIOVASCULAR: Regular rate and rhythm without murmurs, gallops, or rubs. RESPIRATORY: Clear to auscultation. Breath sounds equal bilaterally. No wheezes , rales, or rhonchi. GASTROINTESTINAL: Abdomen soft, non-tender, nondistended. No guarding. MUSCULOSKELETAL: Extremities without clubbing, cyanosis but with trace leg pitting edema. No joint tenderness, effusion, or edema noted. No calf tenderness. Negative Homans sign bilaterally. NEUROLOGICAL: Awake and alert. Normal speech. Improving bilateral lower extremity weakness. Normal speech Hospital Course Mr. Pritchett is originally admitted secondary to sepsis and pneumonia. Transverse myelitis is also a complication with his condition while here. He has had a slow recovery but at this point is improving and it has been weaned off oxygen. He'll need more physical therapy at time of discharge. Treatment of his transverse myelitis was provided with steroids IV, high-dose for 5 days. senior living facilities would not take this treatment as an outpatient so this was completed here and finishes up this morning. Bowel movement pending and then patient will be cleared for discharge to long-term facility today. Pt Condition on Discharge: Stable Discharge Disposition: Discharge to SNF Discharge Time: > 30 minutes Discharge Instructions DIET: Follow Instructions for: Heart Healthy Diet Activities you can perform: Regular-No Restrictions Activities to Avoid: Driving Follow up Referrals: Neurology - 1 Week PCP Follow-up - 1 Week New Medications: Ciprofloxacin (Cipro) 500 Mg Tab 500 MG PO BID for Infection, #14 TAB [address] (Aspirin DR) 81 Mg Tabdr 81 MG PO DAILY for Prevent Blood Clot, #30 TAB Methylprednisolone Sod Succinate Inj (Solu-Medrol Inj) 125 Mg/2 Ml Inj 125 MG IV PUSH Q8HR for Control Inflammation for 12 Days, INJECTION dc 10/08/17 Continued Medications: Atorvastatin (Atorvastatin) 20 Mg Tab 20 MG PO HS for Cholesterol Management, #30 TAB 0 Refills Tramadol (Tramadol) 50 Mg Tab 50 MG PO Q8HR PRN for PAIN, #10 TAB 0 Refills (This prescription has been renewed) Ryan Neumann MD Oct 08, 2017 11:51
[2017-10-08 12:00] VITALS: BP 143/67; PULSE 62; RESP 20; TEMP 97.8; O2SAT 96
[2017-10-08] MEDS ORDERED: MAGNESIUM CITRATE SOLN 300 ML BTL PO ONE (12:00)
[2017-10-08 16:00] VITALS: BP 133/65; PULSE 61; RESP 17; TEMP 98.3; O2SAT 94
== END 2017-10-08 16:35 | DRG 871 ==
LOC: NEPE 05:47 → NEDA 08:25 → NEDH 13:07 → N04B 14:39
PROVIDERS: ADMIT Hospitalist; ATTEND Hospitalist
DX: A41.4 Sepsis due to anaerobes (principal); J18.9 Pneumonia, unspecified organism; I47.2 Ventricular tachycardia; G37.3 Acute transverse myelitis in demyelinating disease of central nervous system; G82.20 Paraplegia, unspecified; I48.0 Paroxysmal atrial fibrillation; M48.02 Spinal stenosis, cervical region; R00.1 Bradycardia, unspecified; G62.9 Polyneuropathy, unspecified; N39.0 Urinary tract infection, site not specified; I10 Essential (primary) hypertension; R29.6 Repeated falls; E78.5 Hyperlipidemia, unspecified; M25.78 Osteophyte, vertebrae; T38.0X5A Adverse effect of glucocorticoids and synthetic analogues, initial encounter; R73.9 Hyperglycemia, unspecified; K59.00 Constipation, unspecified; Z87.891 Personal history of nicotine dependence
CPT/HCPCS: 71045; 72156; 72157; 76937; 80048; 80053; 81001; 83605; 83735; 84443; 85025; 87077; 87086; 87186; 93005; 93306; 96365; A9579; J0456; J0696; J1650; J2930; J7030; J7050